=== PATIENT | male | born 1935 | race Two or more races ===

== ENCOUNTER 2021-05-27 09:30 | Outpatient (REF) | payer MEDICARE, SELFPAY ==
--- NOTE | 2021-05-27 09:38 | EMG_ITS ---
Bilateral tibial and peroneal motor studies were performed. Bilateral superficial peroneal and sural sensory studies were performed. Tibial H-reflexes were obtained and paraspinal muscles were tested with a needle. 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 MD GAYATHRI Rojo/NATACHA / [id number]
== END 2021-05-27 09:31 | disposition home or self-care (01) ==
LOC: HO.NEURO 09:30
PROVIDERS: PCP Internal Medicine; Visit Provider Internal Medicine
DX: R29.898 Other symptoms and signs involving the musculoskeletal system (principal)
CPT/HCPCS: 95886; 95911

== ENCOUNTER 2021-08-23 10:00 | Outpatient (RCR) | payer MEDICARE, SELFPAY ==
[2021-08-17 10:10] VITALS: BP 152/67; PULSE 61; O2SAT 92
== END 2021-09-08 10:51 | disposition home or self-care (01) ==
LOC: HO.PT 10:00
PROVIDERS: PCP Internal Medicine; Visit Provider Internal Medicine
DX: G62.9 Polyneuropathy, unspecified (principal)
CPT/HCPCS: 97110; 97162

== ENCOUNTER 2021-12-07 16:16 | Outpatient (REF) | payer MEDICARE, SELFPAY ==
--- NOTE | ~2021-12-07 | XR_ITS ---
EXAMINATION: XR CHEST CLINICAL INFORMATION: COPD. Localized edema. COMPARISON: February 03, 2020 TECHNIQUE: 2 views of the chest were obtained. FINDINGS: There is no evidence of acute parenchymal disease, pneumothorax, or pleural effusion. Heart normal size. No evidence of pulmonary edema. Calcified granulomas present. XR/XR chest 2V IMPRESSION: No acute disease. Old granulomatous disease.
== END 2021-12-07 16:17 | disposition home or self-care (01) ==
LOC: HO.XRAY 16:16
PROVIDERS: Absent Provider Internal Medicine; PCP Internal Medicine; Visit Provider General Practice
DX: J44.9 Chronic obstructive pulmonary disease, unspecified (principal); R60.0 Localized edema
CPT/HCPCS: 71046

== ENCOUNTER 2022-03-04 09:50 | Outpatient (REF) | payer MEDICARE, SELFPAY ==
--- NOTE | 2022-03-04 | PFT_ITS ---
FLOWS: FEV1 40% of predicted at 1.00 L. FVC 74% of predicted at 2.44 L. FEV1 to FVC ratio of 0.41. Positive bronchodilator response. LUNG VOLUMES: Total lung capacity 95% of predicted at 6.19 L. Residual volume 168% of predicted at 4.41 L. Slow vital capacity 46% of predicted at 1.78 L. Expiratory reserve volume 53% of predicted at 0.48 L. Diffusion capacity is moderately decreased, diffusion capacity adjust to being mildly decreased after correction for alveolar ventilation. IMPRESSION: Severe to very severe obstructive ventilatory defect with positive bronchodilator response. Increased residual volume suggests air trapping. Decreased diffusion capacity suggests emphysema. Luis Lopez MD AP/MODL / [id number]
== END 2022-03-04 09:51 | disposition home or self-care (01) ==
LOC: HO.RESP 09:50
PROVIDERS: PCP Internal Medicine; Visit Provider Internal Medicine
DX: J44.9 Chronic obstructive pulmonary disease, unspecified (principal)
CPT/HCPCS: 94060; 94727; 94729

== ENCOUNTER → 2022-05-06 09:42 | Outpatient (REF) | payer MEDICARE, SELFPAY ==
--- NOTE | 2022-05-06 09:45 | CA_ITS ---
Transthoracic Echocardiogram Patient (Last, First, Middle): Joshua Montenegro, Gender: Male Date of : 1935 Age: 87 Procedure Date: 05/06/2022 Procedure Type: Transthoracic Echocardiogram Location: OP Height: 167.64 cm Weight: kg BSA: m2 Heart Rate: 69 bpm Private Pilot: MELISSA Referring MD: Minal العراقي MD Symptoms: I10 HTN R06.02 SOB Study Quality: Fair/Parasternal Adequate/Apical ECG Rhythm: Sinus Conclusions: - Normal left ventricular size, thickness, and systolic function. The visually estimated ejection fraction is between 55-60%. - E/E prime ratio is between 8 and 15 consistent with indeterminate filling pressures. - Normal right ventricular cavity size and systolic function. Findings Left Ventricle Normal left ventricular size, thickness, and systolic function. The visually estimated ejection fraction is between 55-60%. There is no evidence of regional wall motion abnormalities. Abnormal diastolic function is noted. Spectral Doppler is indicative of an impaired relaxation filling pattern. E/E prime ratio is between 8 and 15 consistent with indeterminate filling pressures. Right Ventricle Normal right ventricular cavity size and systolic function. Atria Both atria are normal in size. Aortic Valve The aortic valve was not well visualized. There is no aortic valve stenosis. There is no aortic valve regurgitation. Mitral Valve Normal mitral valve structure and function. There is trace mitral valve regurgitation. There is no mitral valve stenosis. Pulmonic Valve The pulmonic valve is likely normal. Tricuspid Valve Normal tricuspid valve structure and function. There is trace tricuspid valve regurgitation. Normal right atrial pressure. There is no evidence of pulmonary hypertension. Great Vessels All visible segments of the aorta are normal in size. The pulmonary artery was not well visualized. Venous The inferior vena cava is normal in size and collapses greater than 50% with inspiration. Pericardium/Pleural There is no evidence of pericardial effusion. Prior Study Comparison No prior study available for comparison. Measurements 2D Linear Measurements IVSd: 0.89 0.6-0.9/0.6-1.0 cm LVIDd: 4.65 3.9-5.3/4.2-5.9 cm LVIDs: 3.36 2.0-3.6 cm LVPWd: 0.59 0.7-1.1 cm LA Diam: 3.30 2.7-3.8/3.0-4.0 cm LV Mass: 135.35 67-162/88-224 g LVOT Diam: 2.10 3.0+(-)1.3 cm 2D Systolic Function EF 4C: 60.90 >55% EF 2C: 53.60 >55% EF BiP: 57.70 >55% Mitral Valve MV Pk E: 0.62 MV PK A: 0.83 MV Decel Time: 186.00 E/A: 0.80 E'Lateral: 7.94 E'Medial: 5.77 E/E' Med: 10.80 E/E' Lat: 7.80 PHT: 55.00 MVA PHT: 4.00 Decel [place]: 3.34 Aortic Valve AoV Pk Shahid: 1.27 AoV Mn Shahid: 0.90 AoV VTI: 0.25 AoV Pk Grad: 6.00 Aov Mn Grad: 4.00 RG Cont.VTI: 2.83 LVOT LVOT Pk Shahid: 1.03 LVOT Mn Shahid: 0.69 LVOT VTI: 0.21 LVOT Pk Grad: 4.00 LVOT Mn Grad: 2.00 LVOT Diam: 2.10 LVOT Area: 3.46 Diastolic Function MV Pk E: 0.62 MV Pk A: 0.83 E/A: 0.80 E'Medial: 5.77 E/E' Med: 10.80 E' Laterial: 7.94 E/E' Lat: 7.80 Right Ventricle TAPSE (mm): 15.70 TVS' Shahid: 12.10 Tricuspid Valve TR Pk Shahid: 2.08 TR Pk Grad: 17.00 RA Press: 3.00 RVSP: 20.00 Great Vessels Aorta Sinus of Valsalva: 3.30 2.0-3.5 cm Ao Asc: 3.20 2.1-3.4 cm Pulmonary Veins Pulm Vein S/D 1.60 Updated in Other Vendor System with Status of Final Wu Bauman MD electronically signed on 05/07/2022 10:36:34 PM with status of Final
== END ==
LOC: HO.CARD 09:42
PROVIDERS: Visit Provider Internal Medicine
DX: I10 Essential (primary) hypertension (principal); R06.02 Shortness of breath
CPT/HCPCS: 93306

== ENCOUNTER 2022-11-11 13:24 | Outpatient (REF) | payer MEDICARE, SELFPAY ==
--- NOTE | ~2022-11-11 | XR_ITS ---
EXAMINATION: XR CHEST CLINICAL INFORMATION: COPD with acute exacerbation. COMPARISON: 12/07/2021 chest radiograph. TECHNIQUE: 2 views of the chest were obtained. FINDINGS: Patchy opacities are seen in the right midlung. Right lung base lateral calcified granuloma without interval change. The left lung is clear. The heart and mediastinal structures are unremarkable. XR/XR chest 2V IMPRESSION: Right midlung infiltrates.
== END 2022-11-11 13:25 | disposition home or self-care (01) ==
LOC: HO.XRAY 13:24
PROVIDERS: Visit Provider Internal Medicine
DX: J44.1 Chronic obstructive pulmonary disease with (acute) exacerbation (principal)
CPT/HCPCS: 71046

== ENCOUNTER 2023-03-15 11:59 | Outpatient (REF) | payer MEDICARE, SELFPAY ==
--- NOTE | ~2023-03-15 | XR_ITS ---
EXAMINATION: XR SHOULDER, LEFT CLINICAL INFORMATION: Pain status-post fall 3 weeks prior. COMPARISON: None available. TECHNIQUE: AP external rotation, Grashey, scapular Y, and axillary views of the left shoulder. FINDINGS: There is mild bony demineralization. The glenohumeral joint is intact. The acromioclavicular and coracoclavicular intervals are normal. No fracture or dislocation is seen. There is no abnormal soft tissue calcification or foreign body. No left pneumothorax is seen. XR/XR shoulder LT min 2V IMPRESSION: Unremarkable left shoulder.
== END 2023-03-15 12:00 | disposition home or self-care (01) ==
LOC: HO.HHCX 11:59
PROVIDERS: Visit Provider Internal Medicine
DX: M25.512 Pain in left shoulder (principal)
CPT/HCPCS: 73030

== ENCOUNTER 2024-03-08 11:43 | Outpatient (REF) | payer OTHER, SELFPAY ==
--- NOTE | ~2024-03-08 | CT_ITS ---
EXAMINATION: CT HEAD WITHOUT CONTRAST CLINICAL INFORMATION: Change in mental status, memory impairment. History of subarachnoid hemorrhage. COMPARISON: None available. TECHNIQUE: Contiguous axial imaging was performed from the skull base to vertex without intravenous administration of contrast. This CT examination was performed using dose optimization techniques as appropriate, variously including the following: *Automated exposure control *Adjustment of mA and/or kV according to patient size (this includes techniques or standardized protocols for targeted exams where dose is matched to indication/reason for exam; i.e. extremities or head) *Use of iterative reconstruction technique DLP: 722 mGy-cm FINDINGS: Moderate diffuse commensurate prominence of ventricles and sulci is noted. Focal cortical and subcortical encephalomalacia over an approximate 2.5 cm diameter region is centered in the anterior right middle frontal lobe gyrus. Elsewhere, mild scattered subcortical and periventricular white matter patchy hypodensities are visualized. A right frontoparietal extra-axial fluid collection is subdural configuration measures 3 mm in width is comprised of intermediate low density attenuation. A left frontoparietal extra-axial fluid collection in the subdural configuration measures 3 mm in width is comprised of intermediate low density fluid. Both findings are suspicious for subacute or chronic subdural hematomas. No acute intracranial hemorrhage visualized. The left frontal cranial aram hole is noted. No mastoid or middle ear cavity effusions identified. Bilateral external auditory canal density likely representing cerumen is noted. The maxillary sinuses are partially included in the image [id number] and mild-moderate concentric mucosal thickening and minimal retained secretions are noted in the visualized left maxillary sinus. Bilateral presumed clot: Mild drainage devices are noted along the medial scleral margins of the globes bilaterally. Bilateral ocular lens replacements are noted. CT/CT head/brain wo IV con IMPRESSION: *No acute intercranial abnormalities identified. 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 No associated lobar herniation. *Chronic encephalomalacia centered in the anterior right middle frontal lobe gyrus likely related to remote ischemic injury. *Moderate diffuse parenchymal volume loss the brain and mild chronic microangiopathic ischemic changes. This result regarding findings suspicious for subacute or chronic subdural hematomas was discussed with Minal العراقي MD by telephone at 03/13/2024 3:42 PM and it was ascertained that the content and urgency of the report was understood at the time of direct communication.
== END 2024-03-08 11:44 | disposition home or self-care (01) ==
LOC: HO.CT 11:43
PROVIDERS: PCP Internal Medicine; Visit Provider Internal Medicine
DX: R41.0 Disorientation, unspecified (principal)
CPT/HCPCS: 70450

== ENCOUNTER 2024-04-03 10:15 | Outpatient (REF) | payer OTHER, SELFPAY ==
[2024-04-03 11:48] LABS: MANUAL DIFF FLAG NO
[2024-04-03 11:56] LABS: Basophils Absolute Auto 0.1 X10*3/uL (0.0-0.2); Basophils Percent Auto 0.7 % (0-2); Eosinophils Absolute Auto 0.7 X10*3/uL (0.0-0.4); Eosinophils Percent Auto 10.4 % (0-4); Hematocrit 41.7 % (42.0-52.0); Hemoglobin 13.3 g/dl (14.0-18.0); Imm Gran Abs Auto 0.05 X10*3/uL (0.00-0.03); Imm Gran Pct Auto 0.7 % (0.0-0.4); Lymphocytes Absolute Auto 1.3 X10*3/uL (1.2-4.9); Lymphocytes Percent Auto 18.6 % (20-40); Mean Corpuscular HGB Conc 31.9 g/dl (31.0-36.0); Mean Corpuscular Hemoglobin 30.4 pg (27.0-33.0); Mean Corpuscular Volume 95.2 fL (80.0-98.0); Mean Platelet Volume 10.2 fL (9.4-12.4); Monocytes Absolute Auto 0.7 X10*3/uL (0.1-1.2); Monocytes Percent Auto 9.2 % (2-11); Neutrophils Absolute Auto 4.2 x10*3/uL (2.0-8.3); Neutrophils Percent Auto 60.4 % (45-73); Platelet Count 258 X10*3/uL (160-400); Red Blood Count 4.38 X10*6/uL (4.60-5.80); Red Cell Distribution Width 12.9 % (11.0-16.0)
[2024-04-03 12:04] LABS: Estimated Average Glucose 137 mg/dL; Hemoglobin A1c % 6.4 % (<6.0)
[2024-04-03 12:22] LABS: Alanine Aminotransferase 28 U/L (0-40); Albumin Level 4.2 g/dL (3.5-5.0); Alkaline Phosphatase 144 U/L (39-117); Anion Gap 14 (12-20); Aspartate Amino Transferase 25 U/L (5-37); Bilirubin Total 0.2 mg/dL (0.0-1.0); Blood Urea Nitrogen 24 mg/dL (9-16); Carbon Dioxide 28 mmol/L (22-29); Chloride 110 mmol/L (96-108); Cholesterol 194 mg/dL (<200); Estimated Glomerular Filt Rate 45; Glucose Random 115 mg/dL (60-115); HDL Cholesterol 40 mg/dL (>40); LDL Cholesterol Calculated 83 mg/dL (<100); Potassium 6.1 mmol/L (3.3-5.1); Sodium 146 mmol/L (135-145); Triglycerides 355 mg/dL (<150)
[2024-04-03 12:37] LABS: TSH reflex Free T4 1.82 uIU/mL (0.32-4.0)
[2024-04-03 12:43] LABS: Creatinine Urine 154.34 mg/dL; Microalbum/Creatinine Ratio Ur 26.5 ug/mg cr (<30)
[2024-04-03 13:04] LABS: HIV AB/AG Nonreactive (Nonreactive); HIV Num 1 0.05 S/CO (0.00-0.99)
[2024-04-04 12:29] LABS: RPR Rapid Plasma Reagin NON-REACTIVE (NON-REACTIVE)
[2024-04-05 14:28] LABS: HCV Log PCR <1.18 NOT DETECTED Log IU/mL (NOT DETECTED); HepC Viral Load <15 NOT DETECTED IU/mL (NOT DETECTED)
[2024-04-06 17:43] LABS: TS Negative Control Passed; TS Panel A 2; TS Panel B 0; TS Positive Control Passed; TSpotTB Negative (Negative)
== END 2024-04-03 10:16 | disposition home or self-care (01) ==
LOC: HO.HHCL 10:15
PROVIDERS: Visit Provider Registered Nurse
DX: Z00.00 Encounter for general adult medical examination without abnormal findings (principal); Z20.2 Contact with and (suspected) exposure to infections with a predominantly sexual mode of transmission
CPT/HCPCS: 36415; 80053; 80061; 82043; 82570; 83036; 84443; 85025; 86481; 86592; 87389; 87522

== ENCOUNTER 2024-04-15 11:43 | Outpatient (REF) | payer OTHER, SELFPAY ==
[2024-04-15 14:15] LABS: Anion Gap 14 (12-20); Blood Urea Nitrogen 21 mg/dL (9-16); Calcium 9.4 mg/dL (8.4-10.2); Carbon Dioxide 31 mmol/L (22-29); Chloride 106 mmol/L (96-108); Estimated Glomerular Filt Rate 47; Glucose Random 147 mg/dL (60-115); Potassium 5.4 mmol/L (3.3-5.1); Sodium 146 mmol/L (135-145)
== END 2024-04-15 11:44 | disposition home or self-care (01) ==
LOC: HO.HHCL 11:43
PROVIDERS: Visit Provider Registered Nurse
DX: E87.5 Hyperkalemia (principal)
CPT/HCPCS: 36415; 80048

== ENCOUNTER 2024-04-19 12:45 | Outpatient (REF) | payer OTHER, SELFPAY ==
[2024-04-19 16:44] LABS: Anion Gap 14 (12-20); Blood Urea Nitrogen 28 mg/dL (9-16); Calcium 9.1 mg/dL (8.4-10.2); Carbon Dioxide 29 mmol/L (22-29); Chloride 105 mmol/L (96-108); Estimated Glomerular Filt Rate 38; Glucose Random 160 mg/dL (60-115); Potassium 5.6 mmol/L (3.3-5.1); Sodium 142 mmol/L (135-145)
== END 2024-04-19 12:46 | disposition home or self-care (01) ==
LOC: HO.HHCL 12:45
PROVIDERS: Visit Provider Internal Medicine
DX: R41.0 Disorientation, unspecified (principal); E87.5 Hyperkalemia
CPT/HCPCS: 36415; 80048

== ENCOUNTER 2024-05-13 11:44 | Outpatient (REF) | payer OTHER, SELFPAY ==
[2024-05-13 13:53] LABS: Anion Gap 16 (12-20); Blood Urea Nitrogen 18 mg/dL (9-16); Calcium 8.6 mg/dL (8.4-10.2); Carbon Dioxide 26 mmol/L (22-29); Chloride 105 mmol/L (96-108); Estimated Glomerular Filt Rate 53; Glucose Random 115 mg/dL (60-115); Potassium 5.5 mmol/L (3.3-5.1); Sodium 141 mmol/L (135-145)
== END 2024-05-13 11:45 | disposition home or self-care (01) ==
LOC: HO.HHCL 11:44
PROVIDERS: Visit Provider Internal Medicine
DX: E87.5 Hyperkalemia (principal); J44.1 Chronic obstructive pulmonary disease with (acute) exacerbation; Z91.89 Other specified personal risk factors, not elsewhere classified
CPT/HCPCS: 36415; 80048

== ENCOUNTER 2024-05-17 11:10 | Outpatient (REF) | payer OTHER, SELFPAY ==
[2024-05-17 21:04] LABS: Anion Gap 15 (12-20); Blood Urea Nitrogen 20 mg/dL (9-16); Calcium 9.1 mg/dL (8.4-10.2); Carbon Dioxide 27 mmol/L (22-29); Chloride 104 mmol/L (96-108); Estimated Glomerular Filt Rate 59; Glucose Random 170 mg/dL (60-115); Potassium 4.3 mmol/L (3.3-5.1); Sodium 142 mmol/L (135-145)
== END 2024-05-17 11:11 | disposition home or self-care (01) ==
LOC: HO.HHCL 11:10
PROVIDERS: Visit Provider Internal Medicine
DX: E87.5 Hyperkalemia (principal)
CPT/HCPCS: 36415; 80048

== ENCOUNTER 2024-11-19 12:10 | Outpatient (REF) | payer OTHER, SELFPAY ==
[2024-11-19 13:54] LABS: Anion Gap 13 (12-20); Blood Urea Nitrogen 19 mg/dL (9-16); Calcium 9.1 mg/dL (8.4-10.2); Carbon Dioxide 25 mmol/L (22-29); Chloride 108 mmol/L (96-108); Estimated Glomerular Filt Rate > 60; Glucose Random 123 mg/dL (60-115); Potassium 5.1 mmol/L (3.3-5.1); Sodium 141 mmol/L (135-145)
== END 2024-11-19 12:11 | disposition home or self-care (01) ==
LOC: HO.HHCL 12:10
PROVIDERS: Visit Provider Internal Medicine
DX: E11.9 Type 2 diabetes mellitus without complications (principal)
CPT/HCPCS: 36415; 80048

== ENCOUNTER 2025-01-02 12:51 | Outpatient (REF) | payer OTHER, SELFPAY ==
--- NOTE | ~2025-01-02 | XR_ITS ---
EXAMINATION: XR CHEST CLINICAL INFORMATION: altered mental status /COPD COMPARISON: Chest x-ray 11/11/2022 and 02/03/2020 TECHNIQUE: 2 views of the chest were obtained. FINDINGS: The lungs are hyperinflated but clear acute process. There is 9 mm nodule right lung base seen on PA projection only. Heart size and poor vascularity is normal. Moderate spondylosis seen throughout dorsal spine. No lytic process. XR/XR chest 2V IMPRESSION: Hyperinflated lungs likely emphysema. Calcified nodule right lung base likely granuloma. It is stable since 02/03/2020 Electronically signed by: Fab Torres MD 01/02/2025 02:11 PM [facility]
[2025-01-02 16:23] LABS: MANUAL DIFF FLAG NO
[2025-01-02 16:43] LABS: Basophils Absolute Auto 0.1 X10*3/uL (0.0-0.2); Basophils Percent Auto 0.7 % (0-2); Eosinophils Absolute Auto 1.1 X10*3/uL (0.0-0.4); Eosinophils Percent Auto 12.2 % (0-4); Hematocrit 39.7 % (42.0-52.0); Hemoglobin 12.6 g/dl (14.0-18.0); Imm Gran Abs Auto 0.05 X10*3/uL (0.00-0.03); Imm Gran Pct Auto 0.5 % (0.0-0.4); Lymphocytes Absolute Auto 0.9 X10*3/uL (1.2-4.9); Lymphocytes Percent Auto 9.8 % (20-40); Mean Corpuscular HGB Conc 31.7 g/dl (31.0-36.0); Mean Corpuscular Hemoglobin 29.9 pg (27.0-33.0); Mean Corpuscular Volume 94.1 fL (80.0-98.0); Mean Platelet Volume 10.5 fL (9.4-12.4); Monocytes Absolute Auto 0.6 X10*3/uL (0.1-1.2); Neutrophils Absolute Auto 6.4 x10*3/uL (2.0-8.3); Neutrophils Percent Auto 69.8 % (45-73); Platelet Count 238 X10*3/uL (160-400); Red Blood Count 4.22 X10*6/uL (4.60-5.80); Red Cell Distribution Width 12.6 % (11.0-16.0); White Blood Count 9.1 X10*3/uL (4.8-10.8)
[2025-01-02 17:06] LABS: Alanine Aminotransferase 12 U/L (0-40); Albumin Level 3.9 g/dL (3.5-5.0); Alkaline Phosphatase 105 U/L (39-117); Anion Gap 14 (12-20); Aspartate Amino Transferase 16 U/L (5-37); Bilirubin Total 0.3 mg/dL (0.0-1.0); Blood Urea Nitrogen 24 mg/dL (9-16); Calcium 8.9 mg/dL (8.4-10.2); Carbon Dioxide 27 mmol/L (22-29); Chloride 108 mmol/L (96-108); Estimated Glomerular Filt Rate 48; Glucose Random 154 mg/dL (60-115); Potassium 5.1 mmol/L (3.3-5.1); Sodium 144 mmol/L (135-145); Total Protein 6.7 g/dL (6.5-8.0)
[2025-01-02 17:22] LABS: TSH reflex Free T4 0.63 uIU/mL (0.32-4.0)
[2025-01-02 17:29] LABS: Folate 3.6 ng/mL (> or = 4.0); Vitamin B12 450 pg/mL (200-900)
[2025-01-02 17:34] LABS: Carbamazepine Tegretol 4.9 mcg/mL (5.0-12.0)
== END 2025-01-02 12:52 | disposition home or self-care (01) ==
LOC: HO.HHCL 12:51
PROVIDERS: Visit Provider Internal Medicine
DX: R41.82 Altered mental status, unspecified (principal); G40.909 Epilepsy, unspecified, not intractable, without status epilepticus; F09 Unspecified mental disorder due to known physiological condition; J43.9 Emphysema, unspecified; F01.B11 Vascular dementia, moderate, with agitation
CPT/HCPCS: 36415; 71046; 80053; 80156; 82607; 82746; 84443; 85025

== ENCOUNTER → 2025-01-02 13:03 | Outpatient (BNV) | payer OTHER, SELFPAY | PROVIDERS: Visit Provider Radiology Diagnostic Radiology | DX: R41.82 Altered mental status, unspecified (principal) | CPT/HCPCS: 71046 ==

== ENCOUNTER 2025-01-06 14:17 | Outpatient (REF) | payer OTHER, SELFPAY ==
[2025-01-06 16:04] LABS: Appearance Urine Turbid; Color Urine Yellow; Glucose Urine UA Negative (Negative); Leukocyte Esterase Urine Large (3+) (Negative); Nitrite Urine Negative (Negative); PH 6.5 (5.0-9.0); UMIC TRIGGER UACC YES; Urine Blood Large (3+) (Negative); Urine Ketones Negative (Negative); Urine Protein 300 (3+) mg/dL (Neg-Trace)
[2025-01-06 16:08] LABS: Bacteria Urine 4+ (None Seen); RBC Urine >20 /HPF (0-2); UACC Culture Trigger YES; WBC Urine >50 /HPF (0-5)
--- OUTSIDE RECORDS SUMMARY | 2025-01-06 16:21 | XMS_ITS | Encounter Summary ---
Author Organization [employer] Address [address] [place] [address] Care Team Providers Care Core Rescuer Name Role Phone Minal العراقي MD Primary Care Provider + Encounter Details Date Type Department Care Team (Late st Contact Info) Description 01/03/2025 Orders Only [facility] [address], [place] [phone] Minal العراقي MD [address] [place], [place] [phone] Social History Tobacco Use Types Packs/Day Years Used Date Smoking Tobacco: Former Smokeless Tobacco: Never Alcohol Use Standard Drinks/Week Comments Never 0 (1 standard drink = 0.6 oz pur e alcohol) Depression Answer Date Recorded Patient Health Questionnaire-9 Score 4 04/03/2024 Patient Health Questionnaire-9 Score 4 04/03/2024 Last PHQ-9: Questionnaire Data Not on file 0 04/03/2024 Housing Stability Answer Date Recorded What is your housing situation today? I have viji benjamin 01/05/[address] you li ve. Do you have problems with any of the following? None of the above 01/05/2024 Food Insecurity Answer Date Recorded Within the past 12 months, y ou worried that your food would run out before you got money to buy more: Never True 01/05/2024 Within the past 12 months,th e food you bought just didn't last and you didn't have enough money to get more: Never True 05/2024 Transportation Answer Date Recorded In the past 12 months, has l ack of transportation kept you from medical appts, meetings, work or from getting things needed for daily living? No 01/05/2024 Utilities Answer Date Recorded In the past 12 months, has t he electric, gas, oil or water company threatened to shut off services in your home? No 01/05/2024 Depression Answer Date Recorded Patient Health Questionnaire-2 Score 2 04/03/2024 Sex and Gender Information Value Date Recorded Sex Assigned at Male 08/29/2022 10:29 AM EDT Legal Sex Male 10:29 AM EDT Gender Identity Male 08/29/2022 10:29 AM EDT Sexual Orientation Straight 08/29/2022 10 :29 AM EDT documented as of this encounter Plan of Treatment Not on file documented as of this encounter Visit Diagnoses Not on filedocumented in this encounter Additional Health Concerns Assessment Noted Time PHQ-9 Depression Total Score: 4 04/03/20 24 9:22 AM EDT documented as of this encounter Care Teams Core Rescuer Relationship Specialty Start Date End Date Minal العراقي MD [address] [place] [id number] PCP - General Family Medicine 10/06/16 [facility] 12/26/24 documented as of this encounter
--- OUTSIDE RECORDS SUMMARY | 2025-01-06 16:21 | XMS_ITS | Encounter Summary ---
Author Organization [employer] Address [address] [facility] [address] [place] [address] Care Team Providers Care Window Draper Name Role Phone Jessica العراقي MD Primary Care Provider + Reason for Visit * Reason Onset Date Comments Care Coordination 01/01/2025 Encounter Details Date Type Department Care Team ([facility] st Contact Info) Description 01/01/2025 Telephone [facility] MEDICINE [address] [place] [address] Jessica العراقي MD [address] [place], [place] [phone] Care Coordination Social History Tobacco Use Types Packs/Day Years [...] AM EDT documented as of this encounter Miscellaneous Notes * Telephone Encounter - Yolie Martines RN - 01/03/2025 1:52 PM EST Noted. * Addendum Note - Jessica العراقي MD - 01/03/2025 1:45 PM ESTAddended by: JESSICA العراقي on: 01/03/2025 01:45 PM Modules accepted: Orders * Telephone Encounter - Jessica العراقي MD - 01/03/2025 1:37 PM EST RN note reviewed, I called Anne Marie (second dose daughter) and discussed with her CXR findings, I toldher that there was no acute changes, only chronic COPD. She tells me that he is already taking carbamazepine 100 mg twice daily along with other medications. I advised to increase gabapentin to 300 mg twice daily instead and I will follow-up with them next week. I ordered UA and culture to be done by VNA or patient next week and bring it to the lab. I discussed with Anne Marie regarding progression of vascular dementia, she is aware that she needs to bring him to the ED if there is any acute exacerbation of any of his conditions. VNA will fu and give b12 monthly as well. * Result Encounter Note - Jessica العراقي MD - 01/03/2025 8:56 AM EST Labs on 01/02/2025 showed low folic acid and hyperglycemia, otherwise TSH, CBC and the rest of the CMP were fairly normal, not explaining mental status changes. His carbamazepine levels are a bit low as well. Please call patient and tell them to increase carbamazepine to 1 tablet twice daily that will also help with behavioral changes. And, start folic acid and have VNA check blood sugar at home for the next 2 weeks, mostly randomly. Please neurology office (I believe Dr. Valenzuela, please check withthe daughter) and tell them that I increase the carbamazepine to 100 mg twice daily mostly due to behavioral issues, thousand the patient has not had any seizures. * Telephone Encounter - Yolie Martines RN - 01/02/2025 11:01 AM EST TC placed to Zuly [phone] in regards to below message. Zuly reports she was able to see the patient yesterday. Zuly reports the patient was clean (he did smell of urine however he had just used the restroom) and the house is also very clean and organized. VNA reports the patient refuses to use incontinence supplies (daughter has tried multiple kinds/styles however patient takes them off and throws them out). Daughter reported the patient only will use incontinence supplies when admittedto the hospital. VNA reports the patient was able to answer a few simple questions. VNA reports thepatients O2 was 91-92% and after 3 minutes of ambulating it was 91-92% as well. Daughter reported to the [facility] his O2 fluctuates normally between 87-92%. Daughter reported the patient is asymptomatic with O2 being 87-92% and does not have any breathing difficulties. VNA reports the patient went to [facility] 2x/week d/t refusing to go however daughter would like for patient to go to decrease caregiver burden. VNA reports the daughter is very conflicted on what to do with her father. Daughter has several health challenges of her own and is feeling overwhelmed. VNA reports daughter is struggling to take care of her father at this time, she did state there are 7 siblings however none are involved in fathers care. Daughter is aware she can bring the patient to the ED for admission to a SNF however she is worried as she does not want him to end up in a facility such as [place] and she is aware the ED will place patient in the SNF with the first bed available. Daughter wants the best SNF available for her father. Daughter will bring the patient to [facility] today to complete BW and CXR. Sending to PCP as FYI. * Telephone Encounter - Yolie Martines RN - 01/01/2025 4:10 PM EST TC placed to Zuly [phone] who reports she was able to make contact with the daughter and is on her way to the house now to complete the safety eval. RN requested VNA complete a O2 after 3 minutes walking on RA. VNA reports the daughter does NOT plan to bring the patient to the ED tonight and informed VNA she will come to [facility] tomorrow to complete BW and Xray. VNA informed RN will return callto VNA tomorrow to obtain O2 level. VNA verbalized understanding. VNA to f/u PRN. * Addendum Note - Jessica العراقي MD - 01/01/2025 3:51 PM ESTAddended by: JESSICA العراقي on: 01/01/2025 03:51 PM Modules accepted: Orders * Telephone Encounter - Jessica العراقي MD - 01/01/2025 3:44 PM EST I spoke with daughter Anne Marie who reports that patient is becoming increasingly agitated over the past few weeks especially at night, and is battling at bedtime at bedtime medications and oxygen use although eventually he agrees to use it. Anne Marie feels overwhelmed by the on hands care required by Joshua due to worsening condition. She tells me she has not noticed any worsening cough shortness of breath, fever, difficulty urinating, diarrhea, sore throat and that he is otherwise taking his medications especially the ones in the morning. She tells me that she has been sending him with oxygen to the daycare this week due to request fromthe [facility] management as patient was using O2 for a while right after a hospitalization last year. It is unclear what O2 order do they have. Overall patient apparently is not using O2 at home during the daytime and is doing well. AP/VNA will do home safety evaluation as detailed below. Will consider placement due to probably worsening dementia with behavioral issues, Anne Marie agrees with the POC. I will order labs to rule out delirium/acute condition/UTI/URI/B12 DEF/etc. patient will have them done tomorrow right after VNA evaluation. No need for oxygen during the daytime, he will continue O2 overnight only for now. VNA to monitor O2 on 3-minute ambulation test * Telephone Encounter - Yolie Martines RN - 01/01/2025 3:20 PM EST RN called daughter [phone] and was able to transfer the call to PCP. RN also spoke to Rose (S liaison) to inquire on patients VNA name and number. RN was informedRozinaNORM is Zuly and her number is [phone]. Rose reports Zuly also reports the patient was supposed to be seen yesterday however the daughter requested visit to be instead as the patient was tired. Zuly is scheduled to see patient tomorrow. TC placed to Zuly [phone] to request a home safety eval during the visit tomorrow. Zuly reports she called the patients daughter today to see if she can perform the safety eval today. Zuly reports the daughter did not answer however she will re-attempt after this conversation to call the daughter again. RN will call VNA back in 30mins to confirm if she will be able to see the patient today. * Telephone Encounter - Jessica العراقي MD - 01/01/2025 2:54 PM EST RN notifications below reviewed, will continue to contact daughter regarding patient's use of oxygen and current conditions as described below. If unable to contact daughter, please ask VNA services to do a home safety evaluation and provide number of a additional caretakers to touch base with in regards of the patient. * Telephone Encounter - Yolie Martines RN - 01/01/2025 2:33 PM EST PCP reviewed below message. Patient is NOT supposed to be on O2 during the day. RN called Leela [phone] to inform Leela the patient is not supposed to be on O2 during the day. [facility] RN and PCP are attempting to make contact with the daughter regarding patients care. RN was provided with alternative phone number of [phone]. RN attempted to call alternative number however no answer, RN left VM requesting CB to red team nurses. PCP notified. * Telephone Encounter - Yolie Martines RN - 01/01/2025 1:56 PM EST TC returned to Leela [phone] who reports the patient returned to [facility] today with O2. [facility] reports they need an order for patient to be on O2 during the daytime. Leela informed per OV note on 12/20/24, patient was to continue with overnight O2 and f/u with [facility]. It is unclear who instructed patient to use day time O2. RN advised JOE Swenson would call [facility] pul[facility] to inquire if patient was advised to use daytime O2 as there is no documentation of this in [facility] and return call to [facility]. Leela is also concerned for the patients wellbeing. Leela reports the patient smelled of urine and stool today and the patient was not wet. Leela reports the patient did not seem as if he has had a shower recently. Leela reports the patient is regressing rapidly and she is concerned the daughter is unable to care for him. Leela reports the patient used to play dominoes all the time however he does notrecall how to play and spends the day wandering . TC placed to [facility] pulmon[facility] [phone] to inquire if they advised the patient/daughter to use [id number] the daytime and if so how many L in order to provide orders to day program. [employer] reports they do not see any clinical notes regarding daytime O2 however they will send a message to [employer] to confirm and they will return call to [facility]. RN will await CB. TC placed to daughter [phone] to inquire on daytime O2 and to inquire if she was advised by a provider to place patient on daytime O2. Daughter did not answer, RN left requesting CB to red team nurses. RN will send to PCP for review * Telephone Encounter - Araceli Garnett - 01/01/2025 1:18 PM EST Tc from Leela at [facility] stating pt was out sick and returned with oxygen. Leela is requesting an orderfor oxygen. Leela also wanted to inform provider pt is regressing Contact Leela or available nurse (if Leela not available) at [phone] documented in this encounter Plan of Treatment Scheduled Orders Name Type Priority Associated Diagnoses Orde r Schedule Carbamazepine, Free Lab Routine Seizure disorder (CMS/HCC) Cognitive disorder Expected: 01/01/2025 (Approximate), Expires: 01/01/2026 documented as of this encounter Procedures Procedure Name Priority Date/Time Associated Diagnosis Comments URINALYSIS, COMPLETE, WITH REFLEX TO CULTURE Routine 01/06/2025 2:21 PM EDT Altered mental status, unspecified altered mental status type XR CHEST 2 VIEWS Routine 01/02/2025 1:03 PM EST Altered mental status, unspecified altered mental status type Pulmonary emphysema, unspecified emphysema type (CMS/HCC) VITAMIN B12/FOLATE, SERUM PANEL Routine 01/02/2025 12:54 PM EST Moderate vascular dementia with agitation (CMS/HCC) TSH W/REFLEX TO FT4 Routine 01/02/2025 1 2:54 PM EST Altered mental status, unspecified altered mental status type CBC WITH AUTO DIFFERENTIAL Routine 01/02/2025 12:54 PM EST Altered mental status, unspecified altered mental status type Pulmonary emphysema, unspecified emphysema type (CMS/HCC) CARBAMAZEPINE, TOTAL Routine 01/02/2025 12:54 PM EST Seizure disorder ([facility]) Cognitive disorder COMPREHENSIVE METABOLIC PANEL Routine 01/02/2025 12:54 PM EST Altered mental status, unspecified altered mental status type Moderate vascular dementia with agitation ([facility]/HCC) documented in this encounter Results * (ABNORMAL) Urinalysis, Complete, with Reflex to Culture (01/06/2025 2:21 PM EDT) Color Urine Yellow [facility] Appearance Urine Turbid [facility] PH 6.5 5.0 - 9.0 [facility] Glucose Urine UA Negative Negative mg/dL [facility] Urine Blood Large (3+)(A) Negative [facility] Specific [place] - Urine 1.020 1.005 - 1.025 [facility] Urine Protein 300 (3+)(A) Neg-Trace mg/dL [facility] Urine Ketones Negative Negative mg/dL [facility] Nitrite Urine Negative Negative [facility] Leukocyte Esterase Urine Large (3+)(A) Negative [facility] RBC Urine >20(A) 0 - 2 /HPF [facility] Urine WBC >50(A) 0 - 5 /HPF [facility] Urine Squamous Epithelial Cell 3-5 0 - 2 /HPF [facility] Urine Bacteria 4+ None Seen [facility] Hyaline Casts, Urine 3-5 0 - 2 /LPF [facility] Urine 01/06/2025 2:2 1 PM EDT 01/06/2025 3:58 PM EDT Narrative [facility] - 01/06/2025 4:08 PM EDT Urine, Clean Catch us Jessica العراقي MD LAB URINE ORDERABLES Fin al Result [facility] [address] [facility] [place] [address] [phone] * XR Chest 2 Views (01/02/2025 1:03 PM EST) Anatomical Region Laterality Modality Chest Radiographic Bev ging 01/02/2025 1:03 PM EST Narrative 01/02/2025 2:14 PM EST ? [facility] ?[address] ?[place] [address] ?XRay Report ? Signed ? Patient: Chuck Ayala,Joshua ?MR#: M ?? [id number] ? : 1935 ?Acct:[id number] ? Age/Sex: 89 / M ?ADM Date: 01/02/25 ? Loc: HO.[facility] ? Attending Dr: Jessica العراقي MD ? Ordering Physician: Jessica العراقي MD ?? Date of Service: 01/02/25 ?? Procedure(s): XR chest 2V ?? Accession Number(s): [id number] ? cc: Jessica العراقي MD ? EXAMINATION: ?? XR CHEST ? CLINICAL INFORMATION: ?? altered mental status /COPD ? COMPARISON: ?? Chest x-ray 11/11/2022 and 02/03/2020 ? TECHNIQUE: ?? 2 views of the chest were obtained. ? FINDINGS: ?? The lungs are hyperinflated but clear acute process. There is 9 mm ?? nodule right lung base seen on PA projection only. Heart size and poor ?? vascularity is normal. Moderate spondylosis seen throughout dorsal ?? spine. No lytic process. ? XR/XR chest 2V ?? IMPRESSION: ?? Hyperinflated lungs likely emphysema. Calcified nodule right lung base ?? likely granuloma. It is stable since 02/03/2020 ? Electronically signed by: ??Fab Torres MD ??01/02/2025 02:11 PM EST RP ? Dictated By: ?Melissa,Fab S MD ? Signed By: ?<Electronically signed by Fab Torres MD in OV> ?01/02/25 1411 ? DD/ 1303 ? TD/TT: 01/02/25 1318 ? Grief Counselor: MSM ? Procedure Note Donjade, Image - 01/02/[address] [address] XRay Report Signed Patient: Mohamud Montenegro#: M [id number] : 1935cct:[id number] Age/Sex: 89 / MADM Date: 01/02/25 Loc: HO.[facility] Attending Dr: Jessica العراقي MD Ordering Physician: Jessica العراقي MD Date of Service: 01/02/25 Procedure(s): XR chest 2V Accession Number(s): [id number] cc: Jessica العراقي MD EXAMINATION: XR CHEST CLINICAL INFORMATION: altered mental status /COPD COMPARISON: Chest x-ray 11/11/2022 and 02/03/2020 TECHNIQUE: 2 views of the chest were obtained. FINDINGS: The lungs are hyperinflated but clear acute process. There is 9 mm nodule right lung base seen on PA projection only. Heart size and poor vascularity is normal. Moderate spondylosis seen throughout dorsal spine. No lytic process. XR/XR chest 2V IMPRESSION: Hyperinflated lungs likely emphysema. Calcified nodule right lung base likely granuloma. It is stable since 02/03/2020 Electronically signed by: Fab Torres MD 01/02/2025 02:11 PM EST Dictated By: Fab Torres MD Signed By: <Electronically signed by Fab Torres MD in OV> 01/02/25 1411 DD/ 1303 TD/TT: 01/02/25 1318 Grief Counselor: [facility] Jessica العراقي MD IMG XR PROCEDURES Final Result * (ABNORMAL) Carbamazepine, Total (01/02/2025 12:54 PM EST) Carbamazepine Tegretol 4.9(L) 5.0 - 12.0 mcg/mL [facility] Blood Venous blood specimen / Unknown 01/02/2025 12:54 PM EST 01/02/2025 4:19 PM EST Jessica العراقي MD LAB BLOOD ORDERABLES Fin al Result Performing Organization Address City/[facility]/ZIP Co de Phone Number [facility] [address] [place] [phone] * (ABNORMAL) Vitamin B12/Folate, Serum Panel (01/02/2025 12:54 PM EST) Vitamin B12 450 200 - 900 pg/mL [facility] Comment:NORMAL 200-900 PG/ML INDETERMINATE 160-199 PG/ML DEFICIENT < 160 PG/ML Folate 3.6(L) > or = 4.0 ng/mL [facility] Comment:Reference Values:> o r = 4.0 ng/mL< 4.0 ng/mL suggests folate deficiency Methotrexate, aminopterin and folinic acid(leucovorin) are chemotherapeutic agents whose molecularstructures are similar to folate; therefore, the Architectfolate assay cannot be used for patients using these drugs. Blood Venous blood specimen / Unknown 01/02/2025 12:54 PM EST 01/02/2025 4:19 PM EST Jessica العراقي MD LAB BLOOD ORDERABLES Fin al Result Performing Organization Address City/[facility]/ZIP Co de Phone Number [facility] [address] [place] [phone] * TSH with Reflex to Free T4 (01/02/2025 12:54 PM EST) TSH reflex Free T4 0.63 0.32 - 4.0 uIU/mL [facility] Blood 01/02/2025 12:5 4 PM EST 01/02/2025 4:19 PM EST Jessica العراقي MD LAB BLOOD ORDERABLES Fin al Result Performing Organization Address City/[facility]/ZIP Co de Phone Number [facility] [address] [place] [phone] * (ABNORMAL) Comprehensive Metabolic Panel (01/02/2025 12:54 PM EST) Sodium 144 135 - 145 mmol/L [facility] Potassium 5.1 3.3 - 5.1 mmol/L [facility] Chloride 108 96 - 108 mmol/L [facility] Carbon Dioxide 27 22 - 29 mmol/L [facility] Anion Gap 14 12 - 20 [facility] Urea Nitrogen (BUN) 24(H) 9 - 16 mg/dL [facility] Creatinine, Serum 1.40 0.5 - 1.4 mg/dL [facility] Estimated Glomerular Filt Rate 48 [facility] Comment:Chronic Kidney Disea se: Estimated GFR < 60 mL/min/[id number] Kidney Disease: Estimated GFR < 15 mL/min/1.73m2 Glucose 154(H) 60 - 115 mg/dL [facility] Calcium 8.9 8.4 - 10.2 mg/dL [facility] Bilirubin, Total 0.3 0.0 - 1.0 mg/dL [facility] Aspartate Amino Transferase 16 5 - 37 U/L [facility] Alanine Aminotransferase 12 0 - 40 U/L [facility] Total Protein 6.7 6.5 - 8.0 g/dL [facility] Albumin Level 3.9 3.5 - 5.0 g/dL [facility] Alkaline Phosphatase 105 39 - 117 U/L [facility] Blood Venous blood specimen / Unknown 01/02/2025 12:54 PM EST 01/02/2025 4:19 PM EST us Jessica العراقي MD LAB BLOOD ORDERABLES Fin al Result Performing Organization Address City/[facility]/ZIP Co de Phone Number [facility] [address] [place] [phone] * (ABNORMAL) CBC auto differential (01/02/2025 12:54 PM EST) White Blood Count 9.1 4.8 - 10.8 X10*3/uL [facility] Red Blood Count 4.22(L) 4.60 - 5.80 X10*6/uL [facility] Hemoglobin 12.6(L) 14.0 - 18.0 g/dl [facility] Hematocrit 39.7(L) 42.0 - 52.0 % [facility] Mean Corpuscular Volume 94.1 80.0 - 98.0 fL [facility] Mean Corpuscular Hemoglobin 29.9 27.0 - 33.0 pg [facility] Mean Corpuscular HGB Conc 31.7 31.0 - 36.0 g/dl [facility] Red Cell Distribution Width 12.6 11.0 - 16.0 % [facility] Platelet Count 238 160 - 400 X10*3/uL [facility] Mean Platelet Volume 10.5 9.4 - 12.4 fL [facility] Neutrophils Percent Auto 69.8 45 - 73 % [facility] Imm Gran Pct Auto 0.5(H) 0.0 - 0.4 % [facility] Lymphocytes Percent Auto 9.8(L) 20 - 40 % [facility] Monocytes Percent Auto 7.0 2 - 11 % [facility] Eosinophils Percent Auto 12.2(H) 0 - 4 % [facility] Basophils Percent Auto 0.7 0 - 2 % [facility] NRBC Pct Auto 0.0 0.0 - 0.2 /100WBC [facility] Neutrophils Absolute Auto 6.4 2.0 - 8.3 x10*3/uL [facility] Imm Gran Abs Auto 0.05(H) 0.00 - 0.03 X10*3/uL [facility] Lymphocytes Absolute Auto 0.9(L) 1.2 - 4.9 X10*3/uL [facility] Monocytes Absolute Auto 0.6 0.1 - 1.2 X10*3/uL [facility] Eosinophils Absolute Auto 1.1(H) 0.0 - 0.4 X10*3/uL [facility] Basophils Absolute Auto 0.1 0.0 - 0.2 X10*3/uL [facility] NRBC Abs Auto 0.000 0.0 - 0.012 X10*3/uL [facility] Blood Venous blood specimen / Unknown 01/02/2025 12:54 PM EST 01/02/2025 4:19 PM EST us Jessica العراقي MD LAB BLOOD ORDERABLES Fin al Result Performing Organization Address City/State/[facility] Co de Phone Number [facility] [address] [place] [phone] documented in this encounter Visit Diagnoses Diagnosis Altered mental status, unspecified altered mental status type- Primary Moderate vascular dementia with agitation (CMS/HCC) Seizure disorder (CMS/HCC) Unspecified epilepsy without mention of intractable epilepsy Cognitive disorder Unspecified persistent mental disorders due to conditions classified elsewhere Pulmonary emphysema, unspecified emphysema type (CMS/HCC) documented in this encounter Additional Health Concerns Assessment Noted Time PHQ-9 Depression Total Score: 4 04/03/20 24 9:22 AM EDT documented as of this encounter Care Teams Window Draper Relationship Specialty Start Date End Date Jessica العراقي MD [address] [place] [phone] PCP - General Family Medicine 10/06/16 [facility] 10/08/24 01/01/25 TBS 12/26/24 documented as of this encounter
--- OUTSIDE RECORDS SUMMARY | 2025-01-06 16:21 | XMS_ITS | Encounter Summary ---
Author Organization [employer] Address [address] [facility] 7t [place] [address] Care Team Providers Care Audio Visual Design Engineer Name Role Phone Minal العراقي MD Primary Care Provider + Encounter Details Date Type Department Care Team (Late st Contact Info) Description 01/06/2025 1:00 PM EDT Telemedicine [facility] MEDICINE [address] [place], [place] [phone] Minal العراقي MD [address] [place], [place] [phone] Moderate vascular dementia with agitation (CMS/HCC) (Primary Dx); Supplemental oxygen dependent Social History Tobacco Use Types Packs/Day Years [...] as of this encounter Miscellaneous Notes * Assessment & Plan Note - Guerda Monsivais MA - 01/06/2025 1:43 PM EDT Associated Problem(s): Supplemental oxygen dependent Patient has advanced COPD with overnight Oxygen needs. Advised Anne Marie to continue 02 supply with new tubing as needed. She will monitor O2 (O2 saturation meter at home). Continue Trelegy and Albuterol PRN. * Assessment & Plan Note - Guerda Monsivais MA - 01/06/2025 1:40 PM EDT Associated Problem(s): Moderate vascular dementia with agitation (CMS/HCC) Rule out UTI, Anne Marie will bring Joshua to Lab for UA, after results will treat accordingly. Advised increased hydration and go to WIC or ED PRN if worsening mental status or fever. Continue Gabapentin 300 mg BID and Carbamazepine for behavioral symptoms. Continue B12 monthly injection. FU with Neurology. Discussed with patient regarding future placement options at SNF and will have our manager rn case reach out to them. Continue with home services with [facility] and [facility]. documented in this encounter Plan of Treatment Not on file documented as of this encounter Visit Diagnoses Diagnosis Moderate vascular dementia with agitation (CMS/HCC)- Primary Supplemental oxygen dependent Dependence on supplemental oxygen documented in this encounter Additional Health Concerns Assessment Noted Time PHQ-9 Depression Total Score: 4 04/03/20 24 9:22 AM EDT documented as of this encounter Care Teams Audio Visual Design Engineer Relationship Specialty Start Date End Date Minal العراقي MD [address] [place] [id number] PCP - General Family Medicine 10/06/16 [employer] 12/26/24 documented as of this encounter
--- OUTSIDE RECORDS SUMMARY | 2025-01-06 16:21 | XMS_ITS | Encounter Summary ---
Author Organization [employer] Address [address] [facility] 7t [place] [address] Care Team Providers Care Slasher Machine Operator Name Role Phone Minal العراقي MD Primary Care Provider + Encounter Details Date Type Department Care Team (Latest Contact Info) Description 01/06/2025 Travel Social History Tobacco Use Types Packs/Day Years [...] documented as of this encounter Care Teams Slasher Machine Operator Relationship Specialty Start Date End Date Minal العراقي MD [address] [place] [address] PCP - General Family Medicine 10/06/16 [employer] 12/26/24 documented as of this encounter
--- OUTSIDE RECORDS SUMMARY | 2025-01-06 16:21 | XMS_ITS | Encounter Summary ---
Author Organization [employer] Address [address] [facility] 7t [place] [address] Care Team Providers Care Independent Trader Name Role Phone Minal العراقي MD Primary Care Provider + Reason for Visit * Reason Onset Date Comments Care Coordination 01/03/2025 Encounter Details Date Type Department Care Team ([facility] st Contact Info) Description 01/03/2025 Telephone [facility] MEDICINE [address] [place] [address] Minal العراقي MD [address] [place], [place] [phone] Care Coordination Social History Tobacco Use Types [...] Encounter - Yolie Martines RN - 01/03/2025 1:11 PM EST Images from the original note were not included. Incoming call from daughter (on HIPAA) in regards to below message. Daughter verbalized understanding regarding BW results and POC regarding folic acid. Daughter reports the patient is already takingcarbamazepine 100mg Bid rx'd by the neurologist. Daughter informed RN will send a message to PCP toinquire on dosing increase/change as PCP was not aware patient was taking this dose already and RN will return call to daughter. RN spoke to daughter at length regarding [facility]. Daughter reports [facility] however they are unable to assist as the patients condition is not related to his service. Daughter is feeling very conflicted regarding SNF and personal feelings of failure as a daughter. Daughter was very thankful for RN's guidance and reassurance. Daughter reports she is aware she needs to bring the patient to the ED as she is unable to care for him safely at home. Daughter reports she would like to discuss with the patient first in orderfor him to not feel abandoned. Sending to PCP as FYI regarding carbamazepine medication dose. Minal العراقي MD [facility] Red Team Nurses Labs on 01/02/2025 showed low folic acid [...] Encounter - Yolie Martines RN - 01/03/2025 11:44 AM EST Images from the original note were not included. TC placed to daughter [phone] in regards to below message. Daughter did not answer, RN left VMrequesting CB to red team nurses. RN will re-attempt in PM. TC placed [facility] neurology [phone] to inform PCP has increased carbamazepine 100mg to BID. [facility] neurology verbalized understanding and will send message to neurologist (Dr. Valenzuela) as FYI. Minal العراقي MD [facility] Team Nurses Labs on 01/02/2025 showed low folic acid [...] the patient has not had any seizures. documented in this encounter Plan of Treatment Not on file documented as of this encounter Visit Diagnoses Not on filedocumented in this encounter Additional Health Concerns Assessment Noted Time PHQ-9 Depression Total Score: 4 04/03/20 24 9:22 AM EDT documented as of this encounter Care Teams Independent Trader Relationship Specialty Start Date End Date Minal العراقي MD [address] [place] [id number] PCP - General Family Medicine 10/06/16 [employer] 12/26/24 documented as of this encounter
--- OUTSIDE RECORDS SUMMARY | 2025-01-06 16:21 | XMS_ITS | Encounter Summary ---
Author Organization [employer] Address [address] [facility] 7t [place] [address] Care Team Providers Care Gantry Crane Operator Name Role Phone Minal العراقي MD Primary Care Provider + Reason for Visit * Reason Onset Date Comments Care Coordination 12/20/2024 Encounter Details Date Type Department Care Team ([facility] st Contact Info) Description 12/20/2024 Telephone [facility] MEDICINE [address] [place] [address] Minal العراقي MD [address] [place], [place] [phone] Care Coordination Social History Tobacco Use Types [...] Telephone Encounter - Yolie Martines RN - 12/20/2024 2:43 PM EST [facility] reports they are unable to take patient on for services as they are at capacity in his area. TC placed to daughter [phone] to inform of above message. Daughter informed RN will refer patient to S on Monday and will keep daughter updated. Daughter verbalized understanding. Daughter to f/u PRN. * Telephone Encounter - Yolie Martines RN - 12/20/2024 1:16 PM EST Referral to [facility] faxed with facesheet and OV note to [phone], confirmation page received. [facility]. * Telephone Encounter - Yolie Martines RN - 12/20/2024 12:09 PM EST TC placed to Stella [facility] [phone] in regards to below message. Stella did not answer, RN left VM requesting CB to red team nurses. TC placed to [facility] [phone] to confirm patient is still active with their agency. RN was informed the patient missed a visit d/t being admitted to the hospital and the daughter informed them he would be going to a STR after being discharged from the hospital. [facility] reports on 2/7/25 they attempted to discharge the patient however he was not home therefore they were not able to discharge him. RN inquired on how to resume VNA services since the patient is now home from rehab again. RN was advised to speak to the intake department. Intake reports the patients certification period was 10/08/25-12/06/24. At the end of the certification period the VNA agency has to either re-certify the patient or discharge the patient. Since the patient was admitted to a rehab during the time when the certification period was over, they were unable to re-certify him therefore he was discharged from services. [facility] reports they are unsure if th ey are able to take the patient back on as they are full in his area however recommended RN send a NEW referral to [phone] and they will have their manager process excellence to see if they can take him back on. PCP notified to make an addendum to OV note stating need for VNA services and what kind of servicesPCP is seeking. PCP notified to advise RN once addendum is complete for RN to fax referral. PCP reports the daughter informed her that the patient was going to have VNA services coming out this weekend. PCP informed RN would call daughter to inquire on which agency daughter believes is going out. Daughter reports [facility]. Daughter informed of above regarding [facility] and is aware RN will place new referral now. Daughter verbalized understanding. Daughter to f/u PRN. ----- Message from Minal العراقي MD sent at 12/20/2024 10:26 AM EST ----- Second was discharged from SNF on 12/19/2024 where he was out for extended rehab. Please call VNA toresume B12 injections monthly and continue pharmacal location, medication administration and safetyevaluation at home. Patient may need evaluation for placement, I will discuss this with Nay hairstno. documented in this encounter Plan of Treatment Not on file documented as of this encounter Visit Diagnoses Not on filedocumented in this encounter Additional Health Concerns Assessment Noted Time PHQ-9 Depression Total Score: 4 04/03/20 24 9:22 AM EDT documented as of this encounter Care Teams Gantry Crane Operator Relationship Specialty Start Date End Date Minal العراقي MD [address] [place] [id number] PCP - General Family Medicine 10/06/16 [facility] 10/08/24 01/01/25 documented as of this encounter
--- OUTSIDE RECORDS SUMMARY | 2025-01-06 16:22 | XMS_ITS | Encounter Summary ---
Author Organization [employer] Address [address] [facility] 7t [place] [address] Care Team Providers Care Cooling Machine Operator Name Role Phone Minal العراقي MD Primary Care Provider + Reason for Visit * Reason Comments Med Refill Encounter Details Date Type Department Care Team (Late st Contact Info) Description 12/28/2024 Refill [facility] MEDICINE [address] [place], [place] [phone] Minal العراقي MD [address] [place], [place] [phone] Acute left lower quadrant pain Social History Tobacco Use Types Packs/Day Years [...] as of this encounter Visit Diagnoses Diagnosis Acute left lower quadrant pain documented in this encounter Additional Health Concerns Assessment Noted Time PHQ-9 Depression Total Score: 4 04/03/20 9:22 AM EDT documented as of this encounter Care Teams Cooling Machine Operator Relationship Specialty Start Date End Date Minal العراقي MD [address] [place] [address] PCP - General Family Medicine 10/06/16 [facility] 10/08/24 01/01/25 [employer] 12/26/24 documented as of this encounter
--- OUTSIDE RECORDS SUMMARY | 2025-01-06 16:22 | XMS_ITS | Encounter Summary ---
Author Organization [employer] Address 75 [facility] 7t [place] [address] Care Team Providers Care Wet Press Tender Name Role Phone Minal العراقي MD Primary Care Provider + Reason for Visit * Reason Comments Med Refill Encounter Details Date Type Department Care Team ([facility] st Contact Info) Description 08/23/2023 Refill [facility] [address] [place] [phone] Delores Smith MD [address] [place], [place] [phone] Social History Tobacco Use Types Packs/Day Years Used Date Smoking Tobacco: Former Cigarettes Smokeless Tobacco: Never Alcohol Use Standard Drinks/Week Comments Never 0 (1 standard drink = 0.6 oz pur e alcohol) Housing Stability Answer Date Recorded What is your housing situation today? I have viji benjamin 08/22/[address] you li ve. Do you have problems with any of the following? None of the above 08/22/2023 Food Insecurity Answer Date Recorded Within the past 12 months, y ou worried that your food would run out before you got money to buy more: Never True 08/22/2023 Within the past 12 months,th e food you bought just didn't last and you didn't have enough money to get more: Never True Transportation Answer Date Recorded In the past 12 months, has l ack of transportation kept you from medical appts, meetings, work or from getting things needed for daily living? No 08/22/2023 Utilities Answer Date Recorded In the past 12 months, has t he electric, gas, oil or water company threatened to shut off services in your home? No 08/22/2023 Depression Answer Date Recorded Patient Health Questionnaire-2 Score 0 11/24/2022 Sex and Gender Information Value Date Recorded Sex Assigned at Male 08/29/2022 10:29 AM EDT Legal Sex Male 10:29 AM EDT Gender Identity Male 08/29/2022 10:29 AM EDT Sexual Orientation Straight 08/29/2022 10 :29 AM EDT documented as of this encounter Plan of Treatment Not on file documented as of this encounter Visit Diagnoses Not on filedocumented in this encounter Care Teams Wet Press Tender Relationship Specialty Start Date End Date Minal العراقي MD [address] [place] [address] PCP - General Family Medicine 10/06/16 [facility] 10/08/24 01/01/25 [employer] 12/26/24 documented as of this encounter
--- OUTSIDE RECORDS SUMMARY | 2025-01-06 16:22 | XMS_ITS | Encounter Summary ---
Author Organization [email or web address] Address 75 [facility] 7t [place] [address] Care Team Providers Care Explosive Ordnance Manager Name Role Phone Minal العراقي MD Primary Care Provider + Reason for Visit * Reason Onset Date Comments Call Back Request 11/28/2024 Encounter Details Date Type Department Care Team ([facility] st Contact Info) Description 11/28/2024 Telephone [facility] MEDICINE [address] [place] [address] Minal العراقي MD [address] [place], [place] [phone] Call Back Request Social History Tobacco Use Types Packs/Day Years [...] encounter Miscellaneous Notes * Telephone Encounter - Dominique Vasquez - 12/10/2024 1:05 PM EST Call was returned to Cynthia at [facility]. She was informed that patient's oxygen is ordered by [facility]. Cynthia stated that she had already reached out to that office and was wait for a fax with the information she needs. No other action is needed from our office at this time. * Telephone Encounter - Hammad Gonzalez - 12/09/2024 12:15 PM EST TC from pt requesting a call back. Cynthia states that she did not receive any call back regarding Prior message. Contact Cynthia at [phone] * Telephone Encounter - Pooja Quiroz - 12/05/2024 12:26 PM EST Tc from Cynthia requesting a call back regarding message below. Contact: * Telephone Encounter - Tevin Jaeger - 11/28/2024 11:15 AM EST TC from Cynthia from [facility] checking status on script for Oxygen . Also wanted to clarify whether or not pt only utilizes Oxygen at night , if so they would have to take back his portable oxygen concentrator documented in this encounter Plan of Treatment Not on file documented as of this encounter Visit Diagnoses Not on filedocumented in this encounter Additional Health Concerns Assessment Noted Time PHQ-9 Depression Total Score: 4 04/03/20 9:22 AM EDT documented as of this encounter Care Teams Explosive Ordnance Manager Relationship Specialty Start Date End Date Minal العراقي MD [address] [place] [id number] PCP - General Family Medicine 10/06/16 [facility] 10/08/24 01/01/25 documented as of this encounter
--- OUTSIDE RECORDS SUMMARY | 2025-01-06 16:22 | XMS_ITS | Encounter Summary ---
Author Organization [employer] Address 75 [facility] 7t [place] [address] Care Team Providers Care Product Safety Head Name Role Phone Minal العراقي MD Primary Care Provider + Encounter Details Date Type Department Care Team (Latest Contact Info) Description 12/20/2024 Travel Social History Tobacco Use Types Packs/Day [...] documented as of this encounter Care Teams Product Safety Head Relationship Specialty Start Date End Date Minal العراقي MD [address] [place] [address] PCP - General Family Medicine 10/06/16 [facility] 10/08/24 01/01/25 documented as of this encounter
--- OUTSIDE RECORDS SUMMARY | 2025-01-06 16:22 | XMS_ITS | Encounter Summary ---
Author Organization [employer] Address [address] [facility] 7t h Floor [place] [phone] Care Team Providers Care Security Rover Name Role Phone Minal العراقي MD Primary Care Provider + Reason for Visit * Reason Comments Follow-up Encounter Details Date Type Department Care Team (Latest Contact Info) Description 12/20/2024 9:00 AM EST Office Visit [facility] [address] [place], [place] [phone] Minal العراقي MD [address] [place], [place] [phone] Pulmonary emphysema, unspecified emphysema type (CMS/HCC) (Primary Dx); Seizure disorder (CMS/HCC); B12 deficiency; History of hemorrhagic cerebrovascular accident (CVA) with residual deficit; Type 2 diabetes mellitus without complication, without long-term current use of insulin (CMS/HCC); Overweight; Dietary counseling; Exercise counseling Social History Tobacco Use Types Packs/Day Years Used Date Smoking Tobacco: Former Smokeless Tobacco: Never Tobacco Cessation:Counseling Given: Not Answered Alcohol Use Standard Drinks/Week Comments Never 0 [...] AM EDT documented as of this encounter Last Filed Vital Signs Vital Sign Reading Time Taken Comments Blood Pressure 138/71 12/20/2024 8:56 AM EST Pulse 74 12/20/2024 8:56 AM EST Temperature 35.7 ??C (96.3 ??F) 12/20/2024 8:56 AM ES T Respiratory Rate 16 12/20/2024 8:56 AM EST Oxygen Saturation 90% 12/20/2024 8:56 AM EST Inhaled Oxygen Concentration - - Weight 73.5 kg (162 lb 2 oz) 12/20/2024 8:56 AM EST Height 162.6 cm (5' 4 ) 12/20/2024 8:56 AM EST Body Mass Index 27.83 12/20/2024 8:56 AM EST documented in this encounter Progress Notes * Minal العراقي MD - 12/20/2024 9:00 AM EST SUBJECTIVE: Joshua Ayala is a 89 y.o. year old male who presents for FU COPD . Denies recent illness, injury, or hospitalization. Patient here with to follow-up gabapentin titration. Gabapentin had been cut down last month to 300mg nightly due to excessive sedation and weakness. In the interim patient was admitted to [facility] on 12/04/2024 due to weakness/COPD exacerbation. He was treated with inhalers and discharged to a residential for rehab on 12/06/2024. No discharge summary available at this time. According to [facility] discharge summary he was on trilogy, carbamazepine 100 mg twice daily, bupropion 200 mg twice daily, he is back on gabapentin 300 mg 3times daily and Keppra 750 mg twice daily. He is also on trazodone 50 mg nightly and mirtazapine 7.5 mg nightly plus Seroquel 50 mg nightly. He was discharged home on 12/19/2024. Patient tells me that overall he is doing well, denies respiratory distress and has occasional dry cough. He is using oxygen overnight and is sleeping well. His daughter tells me that he did significantly better on tiredness after gabapentin was lowered tonightly only, she gave him gabapentin last night only as well. Acute Concerns: There is concern regarding placement. Patient ended up in the hospital after she was hospitalized for severe condition and patient had refused to eat. Her daughter was watching him but he refused to take his medications as well. She tells me that he has been increasingly withdrawn, occasionally notoriented and talks about facts from years past. Today he tells me that he was already plays with some practitioners like medical school but he did not know where he was, he was essentially unable to say that he was at a skilled rehab facility and the reason for it. He was unable to describe what heate the day before and what he had for breakfast this morning. Social History Social History Narrative Not on file Patient Active Problem List Diagnosis COPD with emphysema (CMS/HCC) Mixed hyperlipidemia Drug-induced constipation IFG (impaired fasting glucose) Allergic conjunctivitis Arthritis Benign essential hypertension Chronic low back pain Chronic post-traumatic headache Coronary atherosclerosis Neuropathy Seasonal allergic rhinitis Seizure disorder (CMS/HCC) Stage 3 chronic kidney disease (CMS/HCC) Subdural hematoma (CMS/HCC) Syncope Decrease in appetite Dizziness Idiopathic osteoarthritis Increased frequency of urination Tinea pedis Lung nodule seen on imaging study Diverticulosis of colon Oral candidiasis Acute pain of left shoulder Grief B12 deficiency Long toenail Right hip pain Oral leukoplakia Diverticulitis of large intestine with perforation without abscess or bleeding Stress incontinence of urine Recurrent major depressive disorder, 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 Review of Systems Constitutional: Positive for fatigue. Negative for fever. HENT: Negative for congestion, ear pain, rhinorrhea and sore throat. Eyes: Negative for pain and discharge. Respiratory: Positive for cough and shortness of breath. Cardiovascular: Negative for chest pain. Gastrointestinal: Negative for abdominal pain, constipation, diarrhea and nausea. Endocrine: Negative for polydipsia. Genitourinary: Negative for dysuria and frequency. Musculoskeletal: Positive for arthralgias and gait problem. Negative for back pain and neck pain. Neurological: Positive for weakness. Negative for dizziness, numbness and headaches. Psychiatric/Behavioral: Positive for confusion. Negative for agitation. OBJECTIVE: Vitals: 12/20/24 0856 BP: 138/71 Pulse: 74 Resp: 16 Temp: 96.3 ??F (35.7 ??C) SpO2: 90% Physical Exam Constitutional: Appearance: Normal appearance. HENT: Right Ear: Tympanic membrane and ear canal normal. Left Ear: Tympanic membrane and ear canal normal. Mouth/Throat: Mouth: Mucous membranes are moist. Pharynx: No oropharyngeal exudate or posterior oropharyngeal erythema. Eyes: Pupils: Pupils are equal, round, and reactive to light. Cardiovascular: Rate and Rhythm: Normal rate and regular rhythm. Heart sounds: No murmur heard. Pulmonary: Breath sounds: Examination of the right-middle field reveals rhonchi. Examination of the left-middle field reveals rhonchi. Examination of the right- lower field reveals rhonchi. Examination of the left-lower field reveals rhonchi. Rhonchi present. No wheezing. Abdominal: General: Bowel sounds are normal. Palpations: Abdomen is soft. Tenderness: There is no abdominal tenderness. Musculoskeletal: General: No tenderness. Normal range of motion. Cervical back: Normal range of motion. No tenderness. Skin: General: Skin is warm. Neurological: General: No focal deficit present. Mental Status: He is alert. Cranial Nerves: Cranial nerves 2-12 are intact. Motor: Motor function is intact. Gait: Gait abnormal. Psychiatric: Mood and Affect: Mood normal. Speech: Speech is delayed. Behavior: Behavior normal. Behavior is cooperative. Problem List Items Addressed This Visit COPD with emphysema (CMS/HCC) - Primary He has not had any recent exacerbations since last year hospitalization. He received RSV immunizationx on 12/12/2024 and COVID booster on 10/27/2023 Continue Trelegy and follow-up with pulmonology Continue overnight O2. Advised to use albuterol inhaler 3 times daily for the next 3 days then as needed, reconsult as needed worsening shortness of breath, change in color of sputum or respiratory distress. Seizure disorder ([facility]) He has not had any new seizures in approximately 6 months. He will continue on carbamazepine and Lamictal same dose, I will lower again gabapentin to 300 mg nightly and follow-up in 4 weeks. I told her daughter and patient to watch for symptoms of neuropathyas well. They should follow-up with Dr. Valenzuela at [facility] neurology, her daughter will check on the date of the next appointment. Patient needs to continue with home services, avoid staying by himself due to multiple chronic conditions, risk of seizures and recurrent falls with head concussion and internal bleeding. Will check with care management regarding options for patient's placement in a long-term care facility I discussed with patient's daughter,. B12 deficiency He is due for injection this month, due to difficulty leaving the home well as the VNA to take overB12 supplementation. History of hemorrhagic cerebrovascular accident (CVA) with residual deficit Patient is significantly debilitated after recurrent subdural hematomas, falls and microvascular disease. He needs assistance in most of his ADLs. Given that his daughter who is primary assault boat coxswain care has been progressively sick this past year, [facility]ed [facility] for [facility], will discuss with insurance what their options are. At this time he is safe at home and will continue with home care and VNA for medication administration (b12 inj + multiple PO meds), pharmacological education Type 2 diabetes mellitus without complication, without long-term current use of insulin ([facility]) Controlled, fu at next appt Relevant Orders POCT Glucose (Completed) Overweight Discussed re weight reduction options including exercise, life style modifications, diet. Recommended to decrease soda and sugary beverage consumption, increase protein intake with meals (at least 1 portion of protein with each meal) to assist with satiety, increase dietary fiber Other Visit Diagnoses Dietary counseling Exercise counseling Follow Up: Current Outpatient Medications on File Prior to Visit Medication Sig Dispense Refill acetaminophen (Tylenol) 500 MG tablet take 1 tablet by oral route every6 -8 hours as needed not to exceed 4 tablets per 24hrs albuterol (2.5 MG/3ML) 0.083% nebulizer solution Take 3 mL (2.5 mg) by nebulization every 6 (six) hours if needed for wheezing. 75 mL 11 albuterol 108 (90 Base) MCG/ACT inhaler TOME DOS INHALACIONES POR VIA ORAL CADA CUATRO A SEIS HORASCUANDO SEA NECESARIO 8.5 g 1 Alcohol Swabs (B-D SINGLE USE SWABS REGULAR) pads USE TO TEST BLOOD SUGAR 1X TIMES DAILY 100 each 11 Blood Glucose Monitoring Suppl ([employer] [place] Lite) w/Device kit Use to test blood sugar 1x times daily 1 kit 0 carBAMazepine (TEGretol) 100 MG chewable tablet TAKE 1/2 TABLET BY MOUTH TWICE A DAY. IF PAIN RECURRS, INCREASE TO 1 TABLET TWICE A DAY cyanocobalamin (Vitamin B-12) 1000 MCG/ML injection INJECT 1 ML BY INTRAMUSCULAR ROUTE MONTHLY 9 mL1 D3 Super Strength 50 MCG (2000 UT) capsule TOME KEI CAPSULA TODOS LOS GALDAMEZ 90 capsule 2 Diclofenac Sodium 1 % gel APPLY 2 GRAMS TOPICALLY IF NEEDED IN THE MORNING AND EVENING 100 g 0 docusate sodium (Colace) 100 MG capsule TAKE 1 CAPSULE BY MOUTH TWICE A DAY 180 capsule 1 Etxnmxcechx-Evhjnarpp-Xvqamv (Trelegy Ellipta) 200-62.5-25 MCG/ACT aerosol powder Inhale 1 puff Once per day. 1 each 11 FREESTYLE LITE test strip Use to test blood sugar 1x times daily 100 each 12 gabapentin (Neurontin) 300 MG capsule Take 1 capsule (300 mg) by mouth at bedtime. 90 capsule 1 Lancets misc Use to test blood sugar 1x times daily 100 each 0 levETIRAcetam (Keppra) 750 MG tablet Take 1 tablet by mouth 2 times daily. Melatonin 5 MG tablet dispersible Take 1 tablet (5 mg) by mouth Once daily. 30 tablet 11 metoprolol tartrate (Lopressor) 25 MG tablet TAKE 1/2 TABLET POR VIA ORAL DOS VECES AL ZULEMA 90 tablet 3 Nebulizers (InnoSpire Elegance Nebulizer) misc USE QID PRN SOB/COUGH WITH NEBULIZER MACHINE 1 each 3 pantoprazole (ProtoNix) 20 MG EC tablet Take 20 mg by mouth. polyethylene glycol, PEG, 3350 (GaviLAX) 17 GM/SCOOP powder Take 17 g by mouth if needed each day (constipation). 510 g 11 QUEtiapine (SEROquel) 25 MG tablet TOME DOS TABLETAS POR VIA ORAL TODOS LOS GALDAMEZ 180 tablet 1 simvastatin (Zocor) 40 MG tablet TAKE 1 TABLET BY MOUTH AT BEDTIME 90 tablet 1 traZODone (Desyrel) 50 MG tablet Take 1 tablet (50 mg) by mouth at bedtime. 30 tablet 11 Current Facility-Administered Medications on File Prior to Visit Medication Dose Route Frequency Provider Last Rate Last Admin cyanocobalamin (Vitamin B-12) injection 1,000 mcg 1,000 mcg Intramuscular q30 days Minal العراقي MD 1,000 mcg at 11/19/24 1156 documented in this encounter Miscellaneous Notes * Assessment & Plan Note - Minal العراقي MD - 12/20/2024 1:12 PM EST Associated Problem(s): Overweight Discussed re weight reduction options including exercise, life style modifications, diet. Recommended to decrease soda and sugary beverage consumption, increase protein intake with meals (at least 1 portion of protein with each meal) to assist with satiety, increase dietary fiber * Assessment & Plan Note - Minal العراقي MD - 12/20/2024 1:11 PM EST Associated Problem(s): Type 2 diabetes mellitus without complication, without long-term current useof insulin ([facility]) Controlled, fu at next appt * Assessment & Plan Note - Minal العراقي MD - 12/20/2024 10:24 AM EST Associated Problem(s): History of hemorrhagic cerebrovascular accident (CVA) with residual deficit Patient is significantly debilitated after recurrent subdural hematomas, falls and microvascular disease. He needs assistance in most of his ADLs. Given that his daughter who is primary assault boat coxswain care has been progressively sick this past year, [facility] for [facility], will discuss with insurance what their options are. At this time he is safe at home and will continue with home care and VNA for medication administration (b12 inj + multiple PO meds), pharmacological education * Assessment & Plan Note - Minal العراقي MD - 12/20/2024 10:23 AM EST Associated Problem(s): B12 deficiency He is due for injection this month, due to difficulty leaving the home well as the VNA to take overB12 supplementation. * Assessment & Plan Note - Minal العراقي MD - 12/20/2024 9:35 AM EST Associated Problem(s): COPD with emphysema (CMS/HCC) He has not had any recent exacerbations since last year hospitalization. He received RSV immunizationx on 12/12/2024 and COVID booster on 10/27/2023 Continue Trelegy and follow-up with pulmonology Continue overnight O2. Advised to use albuterol inhaler 3 times daily for the next 3 days then as needed, reconsult as needed worsening shortness of breath, change in color of sputum or respiratory distress. * Assessment & Plan Note - Minal العراقي MD - 12/20/2024 9:34 AM EST Associated Problem(s): Seizure disorder (CMS/HCC) He has not had any new seizures in approximately 6 months. He will continue on carbamazepine and Lamictal same dose, I will lower again gabapentin to 300 mg nightly and follow-up in 4 weeks. I told her daughter and patient to watch for symptoms of neuropathyas well. They should follow-up with Dr. Valenzuela at [facility] neurology, her daughter will check on the date of the next appointment. Patient needs to continue with home services, avoid staying by himself due to multiple chronic conditions, risk of seizures and recurrent falls with head concussion and internal bleeding. Will check with care management regarding options for patient's placement in a long-term care facility I discussed with patient's daughter,. documented in this encounter Plan of Treatment Not on file documented as of this encounter Procedures Procedure Name Priority Date/Time Associated Diagnosis Comments POCT GLUCOSE Routine 12/20/2024 8:57 AM EST Type 2 diabetes mellitus without complication, without long-term current use of insulin (CMS/HCC) documented in this encounter Results * POCT Glucose (12/20/2024 8:57 AM EST) Glucose Blood, POC 139 60 - 200 mg/dL QC Media Lot # [id number] Lot# Expiration Date [id number] Blood Capillary blood specimen / Unknown 12/20/2024 8:57 AM EST Minal العراقي MD POINT OF CARE TEST ENTER /EDIT ORDERABLES Final Result documented in this encounter Visit Diagnoses Diagnosis Pulmonary emphysema, unspecified emphysema type (CMS/HCC)- Primary Seizure disorder (CMS/HCC) Unspecified epilepsy without mention of intractable epilepsy B12 deficiency History of hemorrhagic cerebrovascular accident (CVA) with residual deficit Type 2 diabetes mellitus without complication, without long-term current use of insulin (CMS/HCC) Overweight Dietary counseling Dietary surveillance and counseling Exercise counseling documented in this encounter Additional Health Concerns Assessment Noted Time PHQ-9 Depression Total Score: 4 04/03/20 24 9:22 AM EDT documented as of this encounter Care Teams Security Rover Relationship Specialty Start Date End Date Minal العراقي MD [address] [place] [id number] PCP - General Family Medicine 10/06/16 [facility] 10/08/24 01/01/25 documented as of this encounter
--- OUTSIDE RECORDS SUMMARY | 2025-01-06 16:22 | XMS_ITS | Encounter Summary ---
Author Organization [employer] Address [address] [facility] 7t [place] [address] Care Team Providers Care Industrial Engineering Intern Name Role Phone Minal العراقي MD Primary Care Provider + Reason for Visit * Reason Comments Med Refill Encounter Details Date Type Department Care Team ([facility] st Contact Info) Description 12/18/2024 Refill [facility] [address] [place], [place] [phone] Minal العراقي MD [address] [place], [place] [phone] Social History Tobacco Use Types Packs/Day Years [...] documented as of this encounter Care Teams Industrial Engineering Intern Relationship Specialty Start Date End Date Minal العراقي MD [address] [place] [phone] PCP - General Family Medicine 10/06/16 [facility] 10/08/24 01/01/25 [employer] 12/26/24 documented as of this encounter
--- OUTSIDE RECORDS SUMMARY | 2025-01-06 16:22 | XMS_ITS | Encounter Summary ---
Author Organization [employer] Address [address] [facility] 7t [place] [address] Care Team Providers Care Outdoor Adventure Instructor Name Role Phone Minal العراقي MD Primary Care Provider + Encounter Details Date Type Department Care Team (Late st Contact Info) Description 04/13/2023 Orders Only [facility] [address] [place], [place] [phone] Minal العراقي MD [address] [place], [place] [phone] Social History Tobacco Use Types Packs/Day Years Used Date Smoking Tobacco: Former Cigarettes Smokeless Tobacco: Never Alcohol Use Standard Drinks/Week Comments Never 0 (1 standard drink = 0.6 oz pur e alcohol) Depression Answer Date Recorded Patient Health Questionnaire-2 Score 0 11/24/2022 Sex and Gender Information Value Date Recorded Sex Assigned at Male 08/29/2022 10:29 AM EDT Legal Sex Male 10:29 AM EDT Gender Identity Male 08/29/2022 10:29 AM EDT Sexual Orientation Straight 08/29/2022 10 :29 AM EDT COVID-19 Exposure Response Date Recorded In the last 10 days, have yo u been in contact with someone who was confirmed or suspected to have Coronavirus/COVID-19? No / Unsure 04/13/2023 10:36 AM EDT documented as of this encounter Plan of Treatment Not on file documented as of this encounter Visit Diagnoses Not on filedocumented in this encounter Care Teams Outdoor Adventure Instructor Relationship Specialty Start Date End Date Minal العراقي MD [address] [place], [place] [phone] PCP - General Family Medicine 10/06/16 [facility] 10/08/24 01/01/25 [employer] 12/26/24 documented as of this encounter
--- OUTSIDE RECORDS SUMMARY | 2025-01-06 16:22 | XMS_ITS | Encounter Summary ---
Author Organization [employer] Address [address] [facility] 7t [place] [address] Care Team Providers Care Calender Roll Press Operator Name Role Phone Minal العراقي MD Primary Care Provider + Reason for Visit * Reason Onset Date Comments Chart prep 12/17/2024 Encounter Details Date Type Department Care Team ([facility] st Contact Info) Description 12/17/2024 Telephone [facility]INE [address] [place] [address] Minal العراقي MD [address] [place], [place] [phone] Chart prep Social History Tobacco Use Types Packs/Day Years [...] encounter Miscellaneous Notes * Telephone Encounter - Nidia Joiner MA - 12/17/2024 9:48 AM EST Chart Prep Labs: done Images: not done Vaccines due: yes Referrals: complete Screenings: eye exam Overdue care gaps: Glucose documented in this encounter Plan of Treatment Not on file documented as of this encounter Visit Diagnoses Not on filedocumented in this encounter Additional Health Concerns Assessment Noted Time PHQ-9 Depression Total Score: 4 04/03/20 24 9:22 AM EDT documented as of this encounter Care Teams Calender Roll Press Operator Relationship Specialty Start Date End Date Minal العراقي MD [address] [place] [address] PCP - General Family Medicine 10/06/16 [facility] 10/08/24 01/01/25 documented as of this encounter
--- OUTSIDE RECORDS SUMMARY | 2025-01-06 16:22 | XMS_ITS | Encounter Summary ---
Author Organization [email or web address] Address [address] [facility] 7t [place] [address] Care Team Providers Care Vp Director Of Finance Name Role Phone Minal العراقي MD Primary Care Provider + Reason for Visit * Reason Onset Date Comments Appointment Request 12/20/2023 Encounter Details Date Type Department Care Team ([facility] st Contact Info) Description 12/20/2023 Telephone [facility] [address] [place] [address] Minal العراقي MD [address] [place], [place] [phone] Appointment Request Social History Tobacco Use Types Packs/Day Years Used Date Smoking Tobacco: Former Cigarettes Smokeless Tobacco: Never Alcohol Use Standard Drinks/Week Comments Never 0 (1 standard drink = 0.6 oz pur e alcohol) Housing Stability Answer Date Recorded What is your housing situation today? I have vijikristan benjamin 08/22/[address] you [...] encounter Miscellaneous Notes * Telephone Encounter - Contreras Velázquez - 12/20/2023 10:27 AM EST Tc from patients daughter calling to request a follow up appt states was advised by the Provider chas in 6 weeks after last visit however specifications writer does not see any documentation on patients chart regarding that information. documented in this encounter Plan of Treatment Not on file documented as of this encounter Visit Diagnoses Not on filedocumented in this encounter Care Teams Vp Director Of Finance Relationship Specialty Start Date End Date Minal العراقي MD [address] [place] [id number] PCP - General Family Medicine 10/06/16 [facility] 10/08/24 01/01/25 [employer] 12/26/24 documented as of this encounter
--- OUTSIDE RECORDS SUMMARY | 2025-01-06 16:22 | XMS_ITS | Encounter Summary ---
Author Organization [employer] Address [address] [facility] 7t [place] [address] Care Team Providers Care Preschool Adviser Name Role Phone Minal العراقي MD Primary Care Provider + Reason for Visit * Reason Comments Med Refill Encounter Details Date Type Department Care Team ([facility] st Contact Info) Description 08/23/2023 Refill [facility] MEDICINE [address] [place], [place] [phone] [facility] [address] [place], [place] [phone] Acute left lower quadrant pain Social History [...] lower quadrant pain documented in this encounter Care Teams Preschool Adviser Relationship Specialty Start Date End Date Minal العراقي MD [address] [place] [address] PCP - General Family Medicine 10/06/16 [facility] 10/08/24 01/01/25 [employer] 12/26/24 documented as of this encounter
--- OUTSIDE RECORDS SUMMARY | 2025-01-06 16:22 | XMS_ITS | Encounter Summary ---
Author Organization [employer] Address [address] [facility] 7t [place] [address] Care Team Providers Care Nitrator Operator Name Role Phone Minal العراقي MD Primary Care Provider + Reason for Visit * Reason Onset Date Comments Appointment Request 02/14/2023 Encounter Details Date Type Department Care Team ([facility] st Contact Info) Description 02/14/2023 Telephone [facility] [address] [place] [address] Minal العراقي MD [address] [place], [place] [phone] Appointment Request Social History Tobacco Use Types [...] suspected to have Coronavirus/COVID-19? No / Unsure 01/30/2023 2:14 PM EDT documented as of this encounter Miscellaneous Notes * Telephone Encounter - Natalie Sherwood RN - 02/14/2023 10:52 AM EDT Call to Joshua Ayala daughter Anne Marie who is on HIPPA. Reports pt having leg weakness x 2 weeks. Per daughter has appt with Neurologist but not until a few weeks out. Per daughter also wanted to book appt with PCP for routine follow up as well as results of CT Scan done last week. Pt booked for OV with PCP on 03/15/23 at 10am. Pt daughter advised to seek WIC for new onset leg weakness . Reviewed operating hours and that wait times vary. Pt daughter agrees. Will send to team to follow up on CT scan results with pt daughter. Protocol Used: Weakness (Generalized) and Fatigue (Adult) Protocol-Based Disposition: See in Office or Video Visit within 3 Days Video visit offer not recorded Positive Triage Question: * Mild weakness (i.e., does not interfere with ability to work, go to school, normal activities) and persists > 1 week * All higher-acuity triage questions were negative Care Advice Discussed: * Reassurance and Education - Mild Weakness * Reasons To Call Back - Unable to stand or walk - Passes out - You become worse * Telephone Encounter - Luis Carlos Abel - 02/14/2023 10:28 AM EDT Symptom: Weakness Outcome: Transfer to a nurse or provider NOW! Reason: Can't stand The caller accepted this outcome Please contact pt daughter at [phone] documented in this encounter Plan of Treatment Not on file documented as of this encounter Visit Diagnoses Not on filedocumented in this encounter Care Teams Nitrator Operator Relationship Specialty Start Date End Date Minal العراقي MD [address] [place] [phone] PCP - General Family Medicine 10/06/16 [facility] 10/08/24 01/01/25 [employer] 12/26/24 documented as of this encounter
--- OUTSIDE RECORDS SUMMARY | 2025-01-06 16:22 | XMS_ITS | Encounter Summary ---
Author Organization [employer] Address [address] [facility] 7t [place] [address] Care Team Providers Care Engineering Librarian Name Role Phone Minal العراقي MD Primary Care Provider + Reason for Visit * Reason Onset Date Comments Hospital Follow-up 04/26/2024 Encounter Details Date Type Department Care Team ([facility] st Contact Info) Description 04/26/2024 Telephone [facility] [address] [place] [address] Minal العراقي MD [address] [place], [place] [phone] Hospital Follow-up Social History Tobacco Use Types Packs/Day Years [...] encounter Miscellaneous Notes * Telephone Encounter - Cynthia Vann - 04/26/2024 9:47 AM EDT Tc from pt requesting a HDF appt. Hospital: [facility] Date of admission: 04/23 Discharge date: 04/25 Diagnosed: Aspiration pneumonia Please contact daughter at [phone] documented in this encounter Plan of Treatment Not on file documented as of this encounter Visit Diagnoses Not on filedocumented in this encounter Additional Health Concerns Assessment Noted Time PHQ-9 Depression Total Score: 4 04/03/20 9:22 AM EDT documented as of this encounter Care Teams Engineering Librarian Relationship Specialty Start Date End Date Minal العراقي MD [address] [place] [id number] PCP - General Family Medicine 10/06/16 [facility] 10/08/24 01/01/25 [employer] 12/26/24 documented as of this encounter
--- OUTSIDE RECORDS SUMMARY | 2025-01-06 16:22 | XMS_ITS | Encounter Summary ---
Author Organization [employer] Address [address] [facility] 7t [place] [address] Care Team Providers Care Elevator Serviceman Name Role Phone Minal العراقي MD Primary Care Provider + Reason for Visit * Reason Comments Med Refill Encounter Details Date Type Department Care Team ([facility] st Contact Info) Description 11/14/2022 Refill [facility] [address] [place], [place] [phone] Minal العراقي MD [address] [place], [place] [phone] Social History Tobacco Use Types Packs/Day Years Used Date Smoking Tobacco: Former Cigarettes Smokeless Tobacco: Never Alcohol Use Standard Drinks/Week Comments Never 0 (1 standard drink = 0.6 oz pur e alcohol) Sex and Gender Information Value Date Recorded [...] suspected to have Coronavirus/COVID-19? No / Unsure 11/11/2022 11:43 AM EST documented as of this encounter Plan of Treatment Not on file documented as of this encounter Visit Diagnoses Not on filedocumented in this encounter Care Teams Elevator Serviceman Relationship Specialty Start Date End Date Minal العراقي MD [address] [place], [place] [phone] PCP - General Family Medicine 10/06/16 [facility] 10/08/24 01/01/25 [employer] 12/26/24 documented as of this encounter
--- OUTSIDE RECORDS SUMMARY | 2025-01-06 16:22 | XMS_ITS | Encounter Summary ---
Author Organization [employer] Address [address] [facility] 7t [place] [address] Care Team Providers Care Metal Smelter Name Role Phone Minal العراقي MD Primary Care Provider + Reason for Visit * Reason Comments Med Refill Encounter Details Date Type Department Care Team (Late st Contact Info) Description 02/02/2024 Refill [facility]INE [address] [place], [place] [phone] Minal العراقي MD [address] [place], [place] [phone] B12 deficiency Social History Tobacco Use Types Packs/Day Years [...] Date Recorded Patient Health Questionnaire-2 Score 0 01/05/2024 Sex and Gender Information Value Date Recorded Sex Assigned at Male 08/29/2022 10:29 AM EDT Legal Sex Male 10:29 AM EDT Gender Identity Male 08/29/2022 10:29 AM EDT Sexual Orientation Straight 08/29/2022 10 :29 AM EDT documented as of this encounter Plan of Treatment Not on file documented as of this encounter Visit Diagnoses Diagnosis B12 deficiency documented in this encounter Care Teams Metal Smelter Relationship Specialty Start Date End Date Minal العراقي MD [address] [place] [phone] PCP - General Family Medicine 10/06/16 [facility] 10/08/24 01/01/25 [employer] 12/26/24 documented as of this encounter
--- OUTSIDE RECORDS SUMMARY | 2025-01-06 16:22 | XMS_ITS | Encounter Summary ---
Author Organization [employer] Address [address] [facility] [address] 7t [place] [address] Care Team Providers Care Rodbuster Name Role Phone Minal العراقي MD Primary Care Provider + Reason for Visit * Reason Comments Med Refill Encounter Details Date Type Department Care Team ([facility] st Contact Info) Description 08/23/2023 Refill [facility] [address] [place] [address] Mauricio Jonas FNP Oral candidiasis Social History Tobacco Use Types Packs/Day Years [...] as of this encounter Visit Diagnoses Diagnosis Oral candidiasis Candidiasis of mouth documented in this encounter Care Teams Rodbuster Relationship Specialty Start Date End Date Minal العراقي MD [address] [place] [phone] PCP - General Family Medicine 10/06/16 [facility] 10/08/24 01/01/25 [employer] 12/26/24 documented as of this encounter
--- OUTSIDE RECORDS SUMMARY | 2025-01-06 16:22 | XMS_ITS | Encounter Summary ---
Author Organization [employer] Address [address] [facility] 7t [place] [address] Care Team Providers Care Product Management Analyst Name Role Phone Minal العراقي MD Primary Care Provider + Reason for Visit * Reason Onset Date Comments triage 02/01/2023 Encounter Details Date Type Department Care Team ([facility] st Contact Info) Description 02/01/2023 Telephone [facility] [address] [place], [place] [phone] Minal العراقي MD [address] [place], [place] [phone] triage Social History Tobacco Use Types Packs/Day Years [...] encounter Miscellaneous Notes * Telephone Encounter - Valentina Jalloh RN - 02/01/2023 10:25 AM EDT Triage call Pt daughter CINDY Kenney, calls to report Pt having mouth symptoms again. Pt was seen in [facility] 01/04 with the same symptoms as today indicating oral candidiasis. Pt was started on mycelex troches and after 10 days was clear . Pt daughter calling today to report symptoms have come back, white patches remain in mouth, gums and inside cheeks. Advised Pt daughter to bring Pt to [facility] today. Daughter reports that Pt is 87 yo and it is very hard to go to [facility] and to wait. Power Electronics Engineer contacted nurse Curtis in [facility] and requested Dr. Chao, who saw Pt in [facility] before could give another prescription for this dx. Dr. Chao requested a tele visit at 1120Am today . Daughter agreed and will be available for call at 1120AM. Protocol Used: Mouth Symptoms (Adult) Protocol-Based Disposition: See in Office or Video Visit within 3 Days Video visit offered and caller accepted Positive Triage Question: * White patches that stick to tongue or inner cheek, which can be wiped off * All higher-acuity triage questions were negative Care Advice Discussed: * Reasons To Call Back - You become worse * Telephone Encounter - Luis Carlos Abel - 02/01/2023 9:03 AM EDT Symptom: Mouth Pain - Not From Injury Outcome: Schedule an urgent appointment (within 4 hours) or talk to a nurse or provider soon Reason: Trouble drinking The caller accepted this outcome Please contact daughter at [phone] Kazakh Speaker documented in this encounter Plan of Treatment Not on file documented as of this encounter Visit Diagnoses Not on filedocumented in this encounter Care Teams Product Management Analyst Relationship Specialty Start Date End Date Minal العراقي MD [address] [place] [id number] PCP - General Family Medicine 10/06/16 [facility] 10/08/24 01/01/25 [employer] 12/26/24 documented as of this encounter
--- OUTSIDE RECORDS SUMMARY | 2025-01-06 16:22 | XMS_ITS | Encounter Summary ---
Author Organization [employer] Address [address] [facility] 7t [place] [address] Care Team Providers Care Speeder Hand Name Role Phone Minal العراقي MD Primary Care Provider + Encounter Details Date Type Department Care Team (Late st Contact Info) Description 06/01/2023 Orders Only [facility] MEDICINE [address] [place], [place] [phone] Minal العراقي MD 230 [place], [place] [phone] B12 deficiency (Primary Dx) Social History Tobacco Use Types Packs/Day Years [...] suspected to have Coronavirus/COVID-19? No / Unsure 05/04/2023 10:33 AM EDT documented as of this encounter Plan of Treatment Not on file documented as of this encounter Visit Diagnoses Diagnosis B12 deficiency- Primary documented in this encounter Care Teams Speeder Hand Relationship Specialty Start Date End Date Minal العراقي MD [address] [place], [place] [phone] PCP - General Family Medicine 10/06/16 [facility] 10/08/24 01/01/25 [employer] 12/26/24 documented as of this encounter
--- OUTSIDE RECORDS SUMMARY | 2025-01-06 16:22 | XMS_ITS | Encounter Summary ---
Author Organization [employer] Address [address] [facility] 7t [place] [address] Care Team Providers Care Store Grocery Merchandiser Name Role Phone Minal العراقي MD Primary Care Provider + Reason for Visit * Reason Onset Date Comments Appointment Request 12/26/2024 Encounter Details Date Type Department Care Team ([facility] st Contact Info) Description 12/26/2024 Telephone [facility]INE [address] [place] [address] Minal العراقي MD 230 [place], [place] [phone] Appointment Request Social History Tobacco Use Types [...] Telephone Encounter - Nidia Joiner MA - 12/26/2024 3:20 PM EST Tc to pt to r/s appt with PCP on 01/06/25 as Provider won't be in that afternoon. Pt's daughter stated she needs appt to be within 4 weeks. Will contact Provider. documented in this encounter Plan of Treatment Not on file documented as of this encounter Visit Diagnoses Not on filedocumented in this encounter Additional Health Concerns Assessment Noted Time PHQ-9 Depression Total Score: 4 04/03/20 9:22 AM EDT documented as of this encounter Care Teams Store Grocery Merchandiser Relationship Specialty Start Date End Date Minal العراقي MD [address] [place] [id number] PCP - General Family Medicine 10/06/16 [facility] 10/08/24 01/01/25 [employer] 12/26/24 documented as of this encounter
--- OUTSIDE RECORDS SUMMARY | 2025-01-06 16:22 | XMS_ITS | Encounter Summary ---
Author Organization [employer] Address [address] [facility] 7t [place] [address] Care Team Providers Care Brass Roller Name Role Phone Minal العراقي MD Primary Care Provider + Encounter Details Date Type Department Care Team (Late st Contact Info) Description 04/13/2023 Orders Only [facility] MEDICINE 230 [place], [place] [phone] Minal العراقي MD [address] [place], [place] [phone] Social History Tobacco Use Types Packs/Day Years [...] on filedocumented in this encounter Care Teams Brass Roller Relationship Specialty Start Date End Date Minal العراقي MD 230 [place], [place] [phone] PCP - General Family Medicine 10/06/16 [facility] 10/08/24 01/01/25 [employer] 12/26/24 documented as of this encounter
--- OUTSIDE RECORDS SUMMARY | 2025-01-06 16:22 | XMS_ITS | Encounter Summary ---
Author Organization [employer] Address [address] [facility] 7t [place] [address] Care Team Providers Care Operating Systems Programmer Name Role Phone Minal العراقي MD Primary Care Provider + Reason for Visit * Reason Comments Med Refill Encounter Details Date Type Department Care Team (Late st Contact Info) Description 02/23/2024 Refill [facility] MED[facility]INE 230 [place], [place] [phone] Minal العراقي MD 230 [place], [place] [phone] Acute left lower quadrant pain; Atherosclerosis of [place] coronary artery of [place] heart without angina pectoris Social History Tobacco Use Types Packs/Day Years [...] Diagnoses Diagnosis Acute left lower quadrant pain Atherosclerosis of [place] coronary artery of [place] heart without angina pectoris documented in this encounter Care Teams Operating Systems Programmer Relationship Specialty Start Date End Date Minal العراقي MD [address] [place] [phone] PCP - General Family Medicine 10/06/16 [facility] 10/08/24 01/01/25 [employer] 12/26/24 documented as of this encounter
--- OUTSIDE RECORDS SUMMARY | 2025-01-06 16:22 | XMS_ITS | Clinical Summary ---
Author Organization [employer] Address [address] [facility] [address] [place] [address] Care Team Providers Care Quahogger Name Role Phone Minal العراقي MD Primary Care Provider + Allergies Active Allergy Reactions Criticality Noted Date Comments Donepezil Diarrhea 11/11/2022 Lisinopril Swelling 11/11/2022 Medications acetaminophen (Tylenol) 500 MG tablet take 1 tablet by oral route every6 -8 hours as needed not to exceed 4 tablets per 24hrs 017 Active pantoprazole (ProtoNix) 20 MG EC tablet Take 20 mg by mouth. 020 Active Nebulizers (LiftoSpire Elegance Nebulizer) miscIndications :COPD with acute exacerbation (CMS/HCC) USE QID PRN SOB/COUGH WITH NEBULIZER MACHINE 1 each 3 023 Active levETIRAcetam (Keppra) 750 MG tablet Take 1 tablet by mouth 2 times daily. 022 Active albuterol 108 (90 Base) MCG/ACT inhalerIndicati ons:Pulmonary emphysema, unspecified emphysema type (CMS/HCC) TOME DOS INHALACIONES POR VIA ORAL CADA CUATRO A SEIS HORAS CUANDO SEA NECESARIO 8.5 g 1 023 Active D3 Super Strength 50 MCG (1999 UT) capsuleIndicati ons:Stage 3 chronic kidney disease, unspecified whether stage 3a or 3b CKD (CMS/HCC) TOME KEI CAPSULA TODOS LOS GALDAMEZ 90 capsule 2 023 Active cyanocobalamin (Vitamin B-12) 1000 MCG/ML injectionIndica tions:B12 deficiency INJECT 1 ML BY INTRAMUSCULAR ROUTE MONTHLY 9 mL 1 024 Active Diclofenac Sodium 1 % gelIndications: Acute pain of left shoulder APPLY 2 GRAMS TOPICALLY IF NEEDED IN THE MORNING AND EVENING 100 g Active Fluticasone-Ume clidin-Vilant (Trelegy Ellipta) 200-62.5-25 MCG/ACT aerosol powderIndicatio ns:COPD with acute exacerbation (CMS/HCC) Inhale 1 puff Once per day. 1 each 024 2024 Active albuterol (2.5 MG/3ML) 0.083% nebulizer solutionIndicat ions:COPD with acute exacerbation (CMS/HCC) Take 3 mL (2.5 mg) by nebulization every 6 (six) hours if needed for wheezing. 75 mL 11 024 2024 Active FREESTYLE LITE test stripIndication s:Type 2 diabetes mellitus without complication, without long-term current use of insulin ([facility]) Use to test blood sugar 1x times daily 100 each 12 024 2024 Active Lancets misc Use to test blood sugar 1x times daily 100 each 024 Active Blood Glucose Monitoring Suppl (FreeStyle [place] Lite) w/Device kit Use to test blood sugar 1x times daily 1 kit Active Alcohol Swabs (B-D SINGLE USE SWABS REGULAR) pads USE TO TEST BLOOD SUGAR 1X TIMES DAILY 100 each 11 024 Active metoprolol tartrate (Lopressor) 25 MG tabletIndicatio ns:Atherosclero sis of [place] coronary artery of [place] heart without angina pectoris TAKE 1/2 TABLET POR VIA ORAL DOS VECES AL ZULEMA 90 tablet 3 024 Active QUEtiapine (SEROquel) 25 MG tablet TOME DOS TABLETAS POR VIA ORAL TODOS [place]ALDAME[place] 180 tablet 1 024 Active docusate sodium (Colace) 100 MG capsuleIndicati ons:Acute left lower quadrant pain TAKE 1 CAPSULE BY MOUTH TWICE A DAY 180 capsule 1 024 Active simvastatin (Zocor) 40 MG tabletIndicatio ns:Atherosclero sis of [place] coronary artery of [place] heart without angina pectoris TAKE 1 TABLET BY MOUTH AT BEDTIME 90 tablet 1 025 Active Melatonin 5 MG tablet dispersible Take 1 tablet (5 mg) by mouth Once daily. 30 tablet 11 025 2025 Active traZODone (Desyrel) 50 MG tablet Take 1 tablet (50 mg) by mouth at bedtime. 30 tablet 11 Active carBAMazepine (TEGretol) 100 MG chewable tablet Chew 1 tablet (100 mg) 2 times daily. 60 tablet 3 Active folic acid (Folvite) 1 MG tablet Take 1 tablet (1 mg) by mouth Once per day. 30 tablet 11 025 2025 Active gabapentin (Neurontin) 300 MG capsule Take 1 capsule (300 mg) by mouth 2 times daily. 60 capsule 3 025 2025 Active sulfamethoxazol e-trimethoprim (Bactrim DS) 800-160 MG tablet Take 1 tablet by mouth 2 times daily for 7 days. 14 tablet 025 2024 Active carBAMazepine (TEGretol) 100 MG chewable tablet TAKE 1/2 TABLET BY MOUTH TWICE A DAY. IF PAIN RECURRS, INCREASE TO 1 TABLET TWICE A DAY 022 2024 Discontinued(R eorder (will not trigger notification to Pharmacy)) polyethylene glycol, PEG, 3350 (GaviLAX) 17 GM/SCOOP powder Take 17 g by mouth if needed each day (constipation). 510 g 11 024 2024 gabapentin (Neurontin) 300 MG capsule Take 1 capsule (300 mg) by mouth at bedtime. 90 capsule 1 025 2024 Discontinued(R eorder (will not trigger notification to Pharmacy)) Hospital, Clinic, or Other Facility Administered Medication Ordered Dose Route Frequency Start Date End Date Status cyanocobalamin (Vitamin B-12) injection 1,000 mcgIndications:B12 deficiency 1000 mcg IM Every 30 days 06/13/2024 06/08/2025 Active Active Problems Problem Noted Date Diagnosed Date Moderate vascular dementia with agitation 2024 Assessment & Plan (01/06/2025 1:40 PM EDT): Rule out UTI, Anne Marie will bring [place] to Lab for UA, after results will treat accordingly. Advised increased hydration and go to WIC or ED PRN if worsening mental status or fever. Continue Gabapentin 300 mg BID and Carbamazepine for behavioral symptoms. Continue B12 monthly injection. FU with Neurology. Discussed with patient regarding future placement options at SNF and will have our director of casework department reach out to them. Continue with home services with PSA and VNA. Altered mental status 01/01/2025 Overweight 12/20/2024 Assessment & Plan (12/20/2024 1:12 PM EST): Discussed re weight reduction options including exercise, life style modifications, diet. Recommended to decrease soda and sugary beverage consumption, increase protein intake with meals (at least 1 portion of protein with each meal) to assist with satiety, increase dietary fiber Cognitive disorder 11/19/2024 Assessment & Plan (11/19/2024 3:07 PM EST): Patient has known microvascular neurological disease but he's been more symptomatic sp falls/Subdural hematomas + frequent COPD exacerbations. It could also be exacerbated by MDD since his and he had to move in with his daughter. We'll restart B12 inj (1+ mo off inj) today and continue by VNA monthly Decrease Gabapentin as above Continue Wellbutrin + Kepra + Seroquel for now, he will fu with Neurology next month. Continue PT/OT at home and we'll request an evaluation to see if he can be independent for few hours or with some level of assistance at [facility] program without increasing other health risks. Dysphasia 11/19/2024 Assessment & Plan (11/19/2024 3:09 PM EST): Most likely related to [employer] disease, he had a recent fall at [facility] program, he will continue OT, may need speech therapy. Increase social interaction, will evaluate possibility to go back to [facility] program without major increase on risk of falls. Type 2 diabetes mellitus wit hout complication, without long-term current use of insulin 07/24/2024 Assessment & Plan (12/20/2024 1:11 PM EST): Controlled, fu at next appt Assessment & Plan (11/19/2024 12:51 PM EST): Controlled. A1c is at goal. Hyperglycemic peaks most likely related to acute infection/stress and steroids. Continue dietary management. Counseled re more frequent low calorie/carb meals. Encouraged physical activity as tolerated. FU in 3 months. Assessment & Plan (07/24/2024 3:54 PM EDT): New onset, controlled, see IFG plan At high risk for aspiration 05/13/2024 Assessment & Plan (05/13/2024 11:10 AM EDT): - had recent aspiration pneumonia, already treated - order barium swallow and f/u with me with results - advised to continue pureed and chopped meals Supplemental oxygen dependent 04/19/2024 Assessment & Plan (01/06/2025 1:43 PM EDT): Patient has advanced COPD with overnight Oxygen needs. Advised Anne Marie to continue 02 supply with new tubing as needed. She will monitor O2 (O2 saturation meter at home). Continue Trelegy and Albuterol PRN. Assessment & Plan (11/19/2024 12:53 PM EST): To be used over night only, FU with Pulmonology. Assessment & Plan (07/19/2024 1:38 PM EDT): He is doing well, he is using O2 only at night. Continue on Trelegy + Albuterol prn and follow up closely with pulmonology. He will bring information regarding recent immunizations, advised to have last Covid booster and RSV. Assessment & Plan (05/13/2024 10:55 AM EDT): - continue 1-2 liters on ambulation and overnight - f/u with pulmonology Assessment & Plan (05/11/2024 12:34 PM EDT): Patient didn't bring O2 tank today, feels well. I d/w him and daughter the importance of ALWAYS bring portable O2 tank, use 3- 4li NC for ambulation Continue use at home and overnight 1-2 li O2 NC provided today at visit while doing the evaluation, patient discharged home with daughter and indications for O2 as above, no other acute s/s COPD exacerbation. They will call back prn if he develops any worsening dyspnea, cough, fever. Assessment & Plan (04/19/2024 3:48 PM EDT): Use 2-3 li NC as needed during the day time + 1-2 li NC overnight Fu with pulmonology Hyperkalemia 04/19/2024 Assessment & Plan (05/13/2024 10:57 AM EDT): - rechecked K today, will prescribe Lokelma Assessment & Plan (04/19/2024 3:49 PM EDT): Mild , recently but hasn't taken Kayexalate. 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 He needs assistance in most of his ADLs. Given that his daughter who is primary loom winder tender care has been progressively sick this past year, I asked them to [facility] regarding options for [facility]-term placement, will discuss with insurance what their options are. At this time he is safe at home and will continue with home care and VNA for medication administration (b12 inj + multiple PO meds), pharmacological education Healthcare maintenance 04/07/2024 Overview (04/07/2024): Colonoscopy: 02/20/18 (possibly during hospital admission), request records Last PE: 04/03/24 Assessment & Plan (04/07/2024 7:33 PM EDT): Per current records: eligible for RSV, Shingles, and COVID vaccine. Daughter believes may have received some of these vaccines through [facility]. Will bring in documentation of previous vaccines to HIM. Diverticulitis of large inte anupam with perforation without abscess or bleeding 11/17/2023 Assessment & Plan (11/17/2023 2:02 PM EST): Resolved, sp abs Avoid constipation, recommended prune juice, increase water intake. Continue miralax and colace dialy Stress incontinence of urine 11/17/2023 Assessment & Plan (11/17/2023 2:03 PM EST): Use pull ups, needs prostate exam, will address at next appt. Use bedside commode. Recurrent major depressive disorder, in partial remission 11/17/2023 Assessment & Plan (01/05/2024 2:03 PM EST): Doing well on Wellbutrin SR 200mg/d only, no change in med dose Advised to apply for [facility] program, he agreed with POC. Assessment & Plan (11/17/2023 2:08 PM EST): Currently more active, has more MS changes likely due to recent acute condition, change on routine and loss of , all happening over the past year. Increase Wellbutrin to 200 mg bid and fu in 6w , [facility] If [facility] changes are made. Counseled family re lowering seizure threshold. Will refer to [facility] to see if activity levels Is increased. Oral leukoplakia 10/03/2023 Assessment & Plan (10/03/2023 10:28 AM EST): R/o candidiasis, will treat w/ Clotrimazole x 10 days. If not resolved he needs to FU w/ dentist to r/o malignancy Right hip pain 04/25/2023 Assessment & Plan (07/18/2023 1:24 PM EDT): Stable, pt has a recent fall getting up from bed Continue use of cane Discuss risk of falls with Daughter Needs some assistance with ADLs, he's living with his daughter after his Assessment & Plan (04/25/2023 11:00 AM EDT): Most likely related to OA exacerbated after fall last month FU with PT at [facility] system Oral candidiasis 03/15/2023 Assessment & Plan (07/06/2023 6:22 PM EDT): pt is edentulous , noted mild generalized erythema in gingiva specially in upper gingiva,also hard palate two small lesions and small possible traumatic ulcer in his right upper gingiva , noted mild not scraping white tongue -possible lesions are from trelegy use predisposing him for candidal infection but not able to stop given reports not well controlled COPD -vs lesions from dentures causing dentures stomatitis and ulcer from trauma with food -will try w nystatin liq e 6 hours for next 10 days -if no improvement and still concern for fungal infection may need to consider fluconazole for 7 days -but with cautions due to risk of QTC prolongation -with carbamazepine and seroquel -pt has apt w PCP schedule already for 2 weeks Assessment & Plan (04/25/2023 10:59 AM EDT): resolved with oral wash after using inhalers Assessment & Plan (03/15/2023 12:58 PM EDT): seems to be recurrent due to use of inhaled steroids recommended mouth wash BID after steroid inhaler treat with nystatin lozenges 4 times per day x 10 days at least Acute pain of left shoulder 03/15/2023 Assessment & Plan (03/15/2023 12:59 PM EDT): r/o fracture s/p fall order xray of the left shoulder use tylenol BID + diclofenac cream PRN I gave him a sling for immobilization Grief 03/15/2023 Assessment & Plan (03/15/2023 1:03 PM EDT): recently , currently living with his daughter. Pt feels safe at home, FU PRN B12 deficiency 03/15/2023 Assessment & Plan (12/20/2024 10:23 AM EST): He is due for injection this month, due to difficulty leaving the home well as the VNA to take over B12 supplementation. Assessment & Plan (05/13/2024 10:56 AM EDT): - pt having B12 injection today and every 2 months - due for B12 levels next year Assessment & Plan (11/17/2023 2:02 PM EST): b12 inj today Check b12 levels with next set of labs Assessment & Plan (04/25/2023 10:58 AM EDT): doing well on current supplementation continue b12 monthly until January 2024 and recheck levels Assessment & Plan (03/15/2023 12:56 PM EDT): obtain B12 levels and replace as needed Long toenail 03/15/2023 Assessment & Plan (03/15/2023 12:56 PM EDT): refer to podiatry Lung nodule seen on imaging study 02/14/2023 Overview (02/14/2023): 0.8 cm groundglass appearance nodule in the R upper lobe of the lungs. Recommended followup CT in 6-12 months Assessment & Plan (04/07/2024 7:39 PM EDT): Reports upcoming appt scheduled with Pulm for repeat CT scan Assessment & Plan (03/15/2024 1:32 PM EDT): Pt due for CT scan this m, will call pulmonology to check on appointment date Assessment & Plan (01/05/2024 11:23 AM EST): He has several lung nodule since 2018, will obtain most recent CT scan reportedly last month Pt to fu with manager film Assessment & Plan (07/18/2023 1:21 PM EDT): FU Ct scan Sep 2023 I gave pulmonary specialization to his daughter to make an sandy with me. Assessment & Plan (04/25/2023 10:59 AM EDT): CT scan due on 06/2023 recommended to call pulmonlogy and schedule an appointment with them if needed pt is a nonsmoker Assessment & Plan (03/15/2023 1:01 PM EDT): Seems to stable with recent CT scan fu with manager film Diverticulosis of colon 02/14/2023 Assessment & Plan (01/05/2024 11:25 AM EST): No recent exacerbations, continue miralax PRN I advised pt and daughter that he could start gong to an adult day program, he will fu with CM/forms department Decrease in appetite 11/22/2022 Idiopathic osteoarthritis 11/22/2022 Increased frequency of urination 11/22/2022 Assessment & Plan (11/17/2023 2:00 PM EST): UA in recent htalization was normal, patient could have BPH, will fu at next appt. He should have bedside comode, Anne Marie Will put it next to the bed. Use pull ups specially at night Tinea pedis 11/22/2022 COPD with emphysema 11/13/2022 Assessment & Plan (12/20/2024 9:35 AM EST): He has not had any recent exacerbations since last year hospitalization. He received RSV immunizationx on 12/12/2024 and COVID booster on 10/27/2023 Continue Trelegy and follow-up with pulmonology Continue overnight O2. Advised to use albuterol inhaler 3 times daily for the next 3 days then as needed, reconsult as needed worsening shortness of breath, change in color of sputum or respiratory distress. Assessment & Plan (11/19/2024 2:57 PM EST): Had recent exacerbation due to RSV + Covid, now improving. Continue Trelegy and FU with Pulmonology. Continue O2 supplementation over night. I will lower gabapentin (rx for pain) to at bedtime only due to potential risk of increased sedation and resp suppression. Assessment & Plan (05/11/2024 12:41 PM EDT): On trelegy inh + albuterol prn + supplemental O2 FU with neurology and re consult prn sxs. Non smoker. Assessment & Plan (04/19/2024 3:48 PM EDT): Advised to use albuterol q6h x 3d then prn. Continue Trelegy Advised to use O2 up to 3 li NC only on a prn basis. Use 1-2li NC overnight and fu with pulmonology. Assessment & Plan (04/07/2024 7:38 PM EDT): Advanced, O2 dependent Continue Trelegy + albuterol PRN 3L O2 during the day, 2L at night Following with [facility] Assessment & Plan (01/05/2024 11:29 AM EST): Advanced, he's O2 dependent Continue Trelegy + albuterol PRN and overnight O2 Counseled regarding RSV vax at earliest convenience, [facility], reportedly had a vaccination recently (?Covid vax) Assessment & Plan (11/17/2023 2:03 PM EST): Continue Trelegy and O2 1Li NC , can increase up to 2li prn SOB Fu with pulmonology Assessment & Plan (10/03/2023 10:27 AM EST): Continue Trelegy BID + Albuterol PRN, will use both the morning of the surgery FU w/ pulmonology Assessment & Plan (03/15/2023 1:02 PM EDT): No recent exacerbations since episode of Covid Continue trelegy and recommedned oral mouth wash after each application. Use albuterol PRN SOB or cough and FU with pulmonlogist Assessment & Plan (11/13/2022 8:13 PM EST): He seems to have developed bronchitis sp URI (Influenza?). Start Z-pack + Albuterol nebs at home *Rx for mouth piece). Order CXR to ro pneumonia. Proair inh x 4 today. Fu in 1m or earlier prn sxs. I will call back with results of CXR Continue Trelegy Mixed hyperlipidemia 11/13/2022 Assessment & Plan (11/13/2022 8:10 PM EST): It could be related to IFG. On simvastatin only. No new meds today, will recheck IFG in 1-2m after acute URI is resolved and decide POC Drug-induced constipation 11/13/2022 Assessment & Plan (04/07/2024 7:29 PM EDT): Well controlled with Miralax and Colace Encouraged lifestyle interventions including increased PO water intake, ambulation after meals. Assessment & Plan (11/13/2022 8:08 PM EST): Start colace. Encouraged increased PO water intake, ambulation after meals. IFG (impaired fasting glucose) 11/13/2022 Assessment & Plan (07/19/2024 1:39 PM EDT): New onset Diabetes. I have discussed with patient regarding increasing physicial activity and decrease calorie intake I'll check FBS with next set of labs. To check RBS at next visit A1c is at goal, he will be checking fingerstick daily and follow up with me in 6 weeks. Assessment & Plan (03/15/2024 1:33 PM EDT): Counseled re more frequent low calorie/carb meals. Check fingersticks at home Encouraged physical activity as tolerated. Assessment & Plan (04/25/2023 11:08 AM EDT): I have discussed with patient regarding increasing physicial activity and decrease calorie intake I'll check FBS with next set of labs. To check RBS at next visit. FU with me next visit Assessment & Plan (11/13/2022 8:10 PM EST): Counseled re more frequent low calorie/carb meals. Encouraged physical activity as tolerated. FU in 1-2 months after acute URI is completely resolved. Allergic conjunctivitis 11/13/2022 Chronic post-traumatic headache 11/13/2022 Neuropathy 11/13/2022 Assessment & Plan (11/19/2024 2:57 PM EST): On gabapentin tid, pain is controlled. I will decrease gabapentin to at bedtime only and observe recurrence of pain / or not FU in 1-2m Assessment & Plan (04/19/2024 3:43 PM EDT): Improving on Gabapentin 300mg tid, no change in dose. FU with Neurology to see if Keppra and Depakote dose can be adjusted/minimize polypharmacy Assessment & Plan (03/15/2024 1:32 PM EDT): LE. Increase gabapentin to 300mg TID, daughter will hold PRN dizziness or sedation Continue b12 supplementation Fu with urology Assessment & Plan (11/17/2023 2:05 PM EST): Mostly on left foot. Continue b12 inj today, cehck levels at next visit. Adjust carbamazepine per neurology. Assessment & Plan (04/25/2023 11:02 AM EDT): secondary to B12 deficiency, improving after supplementation continue b12 injection monthly x 1 year and recheck B12 levels on January 2024 Assessment & Plan (03/15/2023 12:59 PM EDT): r/o B12 deficiency vs lumbar radiculopathy will obtain labs from [facility] or order B12 levels May need PT Seasonal allergic rhinitis 11/13/2022 Seizure disorder 11/13/2022 Assessment & Plan (12/20/2024 9:34 AM EST): He has not had any new seizures in approximately 6 months. He will continue on carbamazepine and Lamictal same dose, I will lower again gabapentin to 300 mg nightly and follow-up in 4 weeks. I told her daughter and patient to watch for symptoms of neuropathy as well. They should follow-up with Dr. Valenzuela at [facility] neurolog[facility], her daughter will check on the date of the next appointment. Patient needs to continue with home services, avoid staying by himself due to multiple chronic conditions, risk of seizures and recurrent falls with head concussion and internal bleeding. Will check with care management regarding options for patient's placement in a long-term care facility I discussed with patient's daughter,. Assessment & Plan (11/19/2024 12:52 PM EST): Secondary to intracranial bleeding, controlled on medications. Continue Keppra. Assessment & Plan (05/13/2024 11:08 AM EDT): - controlled - continue Keppra + Depakote - he is also on Gabapentin BID for neuropathy - f/u with neurology on 05/29 Assessment & Plan (04/07/2024 7:25 PM EDT): No recent seizures - none in last 2 years Following with Neurology - Dr. Valenzuela Continue Keppra + Carbamazepine Assessment & Plan (11/17/2023 2:04 PM EST): No recent seizures Continue Keppra + Carbamazepine Patient is also on gabapentin, her daughter will discuss with Neurology next month re dc med if needed. Assessment & Plan (04/25/2023 10:58 AM EDT): No recent seizures in more than 6 months. Seizures were probably triggered by subural hematoma continue carbamazipine for now, fu with nueurology once per year Stage 3 chronic kidney disease 11/13/2022 Assessment & Plan (11/24/2022 1:51 PM EST): BMP drawn by VNA, will FU next week. Subdural hematoma 11/13/2022 Assessment & Plan (05/11/2024 12:40 PM EDT): Resolving, has residual encephalomalacia. I d/w patient and daughter re implications on neurological functioning down the road, slowing cognition, altered mood and will treat accordingly. Will continue Keppra, gabapentin and carbamazepine for now and fu with Neurology. Will attempt to dc either carbamazepine or gabapentin to simplify med regimen possible. D/w daughter and patient the importance of fall prevention, ambulate with a walker, use of O2 at home, avoid rugs, wires in the house. FU with neurology, no worsening neurological s/s today. Assessment & Plan (04/19/2024 3:45 PM EDT): Recurrent falls, they seem to be reabsorbing, no signs of increase intracranial HTN/herniation I will fax CT scan to neurology to fu. I explained to patient and daughter that there's no need for surgical intervention at this time, memory issues and [place]ONA are probably related to it. ASA is contraindicated due to recurrent falls. Syncope 11/13/2022 Coronary atherosclerosis 03/22/2018 Assessment & Plan (04/07/2024 7:30 PM EDT): Hx stable angina, continues on metoprolol 12.5mg BID LDL goal is 70 Assessment & Plan (03/15/2023 1:01 PM EDT): He has stable angina and doing well on metoprolol 12.5mg BID LDL goal is 70 fu with me in 3 months Arthritis 10/06/2016 Benign essential hypertension 10/06/2016 Assessment & Plan (07/19/2024 1:39 PM EDT): Controlled. Compliant w/meds Continue Metoprolol 25 mg Counseled re low salt diet/increase moderate physical activity. Check home BP BIW and prn CP/CORONA/TRAN Non smoking patient. Assessment & Plan (04/07/2024 7:39 PM EDT): Well controlled Continue metoprolol 12.5 mg BID Assessment & Plan (07/18/2023 1:22 PM EDT): BP runs 140/80, controlled Continue metolipol 12.5 mg BID Assessment & Plan (04/25/2023 11:01 AM EDT): Controlled, BP is at goal. Continue metoprolol only Family to check BP once per week only Counseled re low salt diet/increase moderate physical activity. Check home BP BIW and prn CP/CORONA/TRAN Non smoking patient. 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 Continue PT at home Rx bath seat with support Dizziness 10/06/2016 Resolved Problems Problem Noted Date Diagnosed Date Resolved Date Preop examination 10/03/2023 04/07/2024 Assessment & Plan (10/03/2023 2:02 PM EST): 88 yo patient with multiple medical conditions here for preop evaluation. Most of her/his medical conditions are stable enough so that she/he can safely undergo planned procedure. Eligio is a MEDIUM risk patient due to extensive CV disease, hx CAD and CVA more than 2y ago, stable with no exertional angina or significant neurological deficits. He's undergoing an LOW risk procedure. The risk of CV complication according to RCRI is 10.1%. At this time HE IS ON OPTIMAL CONDITION for planned procedure. -Meds adjusted for the day of surgery as above. Will take Metoprolol and Trelegy inhaler in the morning of surgery, resume all regular meds AFTER the procedure. -MONITOR O2 SATURATION DURING SURGERY TO KEEP IT 90-94%, he tends to desaturate with prolonged decubitus only. -He will call back LD should he develops fever, cough, SOB, CP, UTI sxs or any other acute issue. Acute posttraumatic headache 03/14/2023 04/25/2023 COPD with acute exacerbation 11/24/2022 04/25/2023 Assessment & Plan (11/25/2022 2:35 PM EST): S/p pna, doing better. Continue albuterol and duonebs at home, will send a new prescription to pharmacy. Continue Trelegy and DC spiriva. Will FU in 1 month and order FU x-rays then. Pt reportedly had influenza IZ approximately 1 month ago. See previous note. Dyspnea 11/22/2022 04/25/2023 Paraparesis 11/22/2022 04/25/2023 Gastrointestinal hemorrhage 02/14/2018 04/25/2023 Encounters Date Type Department Care Team Description 01/06/2025 1:00 PM EDT Telemedicine [facility] [address] [place] [phone] Minal العراقي MD Moderate vascular dementia with agitation (CMS/HCC) (Primary Dx); Supplemental oxygen dependent 01/06/2025 Travel 01/03/2025 Telephone [facility] [address] [facility] [place] [address] Minal العراقي MD Care Coordination 01/03/2025 Orders Only [facility] [address] [facility] [place] [address] Minal العراقي MD 01/01/[address] [place] [address] Minal العراقي MD Care Coordination 12/28/2024 Refill [facility] [address] [facility] [place] [address] Minal العراقي MD Acute left lower quadrant pain 12/26/[address] [place] [address] Minal العراقي MD Appointment Request 12/20/2024 9:00 AM EST Office Visit [address] [place] [address] Minal العراقي MD Pulmonary emphysema, unspecified emphysema type (CMS/HCC) (Primary Dx); Seizure disorder (CMS/HCC); B12 deficiency; History of hemorrhagic cerebrovascular accident (CVA) with residual deficit; Type 2 diabetes mellitus without complication, without long-term current use of insulin (CMS/[facility]); Overweight; Dietary counseling; Exercise counseling 12/20/2024 Telephone [facility] [address] [place] [phone] Minal العراقي MD Care Coordination 12/20/2024 Travel 12/18/2024 Refill [facility] [address] [place] [address], [place] [address] Minal العراقي MD 12/17/2024 Telephone [facility] [address] [place] [phone] Minal العراقي MD Chart prep 12/03/2024 Telephone [facility] [address] [place] [address] Minal العراقي MD Durable Medical Equipment 11/28/2024 Telephone [facility] [address] [place] [address], [place] [address] Minal العراقي MD Call Back Request 11/22/2024 Telephone [facility] [place] [address] Minal العراقي MD telephone call 11/20/2024 Telephone [facility] [place] [place] [address] oYlie Martines, RN Care coordination 11/19/2024 10:45 AM EST Office Visit [facility] [place] [address] Minal العراقي MD Pulmonary emphysema, unspecified emphysema type (CMS/HCC) (Primary Dx); Seizure disorder (CMS/HCC); Cognitive disorder; Neuropathy; Type 2 diabetes mellitus without complication, without long-term current use of insulin (CMS/HCC); Supplemental oxygen dependent; Dysphasia; Recurrent major depressive disorder, in partial remission (CMS/HCC); Subdural hematoma (CMS/HCC); Stage 3 chronic kidney disease, unspecified whether stage 3a or 3b CKD (CMS/HCC) 11/19/2024 Travel 11/10/2024 Refill [facility] [place] [address] Minal العراقي MD Atherosclerosis of [place] coronary artery of [place] heart without angina pectoris 10/31/2024 Patient Outreach [facility] [place] [address] Minal العراقي MD Transition Of Care (Tcm) (HDF- scheduled and SDOH screening completed on 04/03/2024.) 10/31/2024 Telephone [facility] [place] [address] Minal العراقي MD Hospital Follow-up 10/25/2024 Telephone [facility] [place] [address] Minal العراقي MD Hospital Follow-up (Patient at [facility], daughter came with concerns re home care) 10/24/2024 Telephone [facility] [place] [address] Minal العراقي MD No Show 10/24/2024 Travel 10/22/2024 Telephone [address] [place] [address] Minal العراقي MD FYi 10/13/2024 Refill [facility] [address] [place] [address] Minal العراقي MD 10/08/[address] [phone] Minal العراقي MD VNA verbal orders 10/08/2024 Patient Outreach [address] [phone] Minal العراقي MD Transition Of Care (Tcm) (HDF- scheduled and SDOH screening completed on 04/03/2024) 10/08/[address] [phone] Minal العراقي MD Hospital Follow-up from Last 3 Months Immunizations Name Administration Dates Next Due Influenza High-dose Quadriva lent Preservative Free 07/18/2023 Influenza Quadrivalent Adjuvanted 10/12/2022 Influenza injectable quadriv alent preservative free 08/18/2020 Influenza, High Dose Seasona l, Preservative Free 07/23/2024,07/27/2018,08/09/2017 Influenza, IIV3, injectable 10/12/2022,1 ,07/27/2018,08/09 Moderna Covid-19 Vaccine 12+ 09/15/2021,02/01/20 21,01/01/2021 Pneumococcal Conjugate PCV 13 2016 Pneumococcal Polysaccharide PPSV23 10/06/2021 RSV Adjuvant 12/12/2024 Tdap 10/06/2021 Zoster, Recombinant 04/12/2022,01/11/2022 Zoster, live 2016 Social History Tobacco Use Types Packs/Day Years [...] Orientation Straight 08/29/2022 10 :29 AM EDT Last Filed Vital Signs Vital Sign Reading [...] Mass Index 27.83 12/20/2024 8:56 AM EST Plan of Treatment Health Maintenance Due Date Last Done Comments Eye Exam 01/25/1945 COVID-19 Vaccine ( season) 2024 10/27/2023, 03/02/2022, 09/15/2021, Additional history exists Alcohol/Substance Use Screening 04/03/2025 04/03/2024 Depression Screening 04/03/2025 04/03/2024, 04/03/20 Diabetes: Urine Protein Screening 04/03/2025 04/03/2024 Lipid Panel 04/03/2025 04/03/2024, 10/30, 12/07/2021, Additional history exists SDOH Screening 04/03/2025 04/03/2024 Diabetes: Foot Exam 04/19/2025 04/19/2024, 04/19/2024, 04/19/2024, Additional history exists Diabetes: Hemoglobin A1C 05/19/2025 025, 07/19/2024, 04/03/2024, Additional history exists Tobacco Screening 12/20/2025 12/20/2024 DTaP/Tdap/Td Vaccines (2 - Td or Tdap) 10/06/2031 10/06/2021 Pneumococcal Vaccine: 50+ Years Completed 10/06/2021, 2016 Zoster Vaccines Completed 04/12/2022, 12/28, 2016 Influenza Vaccine Completed 07/23/2024, , 10/12/2022, Additional history exists RSV Patients and Patients Aged 60 years or older Completed 12/12/2024 HIB Vaccines Aged Out No longer eligi ble based on patient's age to complete this topic HPV Vaccines Aged Out No longer eligi ble based on patient's age to complete this topic Hepatitis A Vaccines Aged Out No long er eligible based on patient's age to complete this topic Hepatitis B Vaccines Aged Out No long er eligible based on patient's age to complete this topic IPV Vaccines Aged Out No longer eligi ble based on patient's age to complete this topic Meningococcal Vaccine Aged Out No julio [place] eligible based on patient's age to complete this topic RSV under 20 months Aged Out No longe r eligible based on patient's age to complete this topic Rotavirus Vaccines Aged Out No longer eligible based on patient's age to complete this topic Procedures Procedure Name Priority Date/Time Associated Diagnosis Comments URINALYSIS, COMPLETE, WITH REFLEX TO CULTURE Routine 01/06/2025 2:21 PM EDT Altered mental status, unspecified altered mental status type XR CHEST 2 VIEWS Routine 01/02/2025 1:03 PM EST Altered mental status, unspecified altered mental status type Pulmonary emphysema, unspecified emphysema type (CMS/HCC) CARBAMAZEPINE, TOTAL Routine 01/02/2025 12:54 PM EST Seizure disorder (CMS/HCC) Cognitive disorder VITAMIN B12/FOLATE, SERUM PANEL Routine 01/02/2025 12:54 PM EST Moderate vascular dementia with agitation (CMS/HCC) TSH W/REFLEX TO FT4 Routine 01/02/2025 1 2:54 PM EST Altered mental status, unspecified altered mental status type COMPREHENSIVE METABOLIC PANEL Routine 01/02/2025 12:54 PM EST Altered mental status, unspecified altered mental status type Moderate vascular dementia with agitation (CMS/HCC) CBC WITH AUTO DIFFERENTIAL Routine 01/02/2025 12:54 PM EST Altered mental status, unspecified altered mental status type Pulmonary emphysema, unspecified emphysema type (CMS/HCC) POCT GLUCOSE Routine 12/20/2024 8:57 AM EST Type 2 diabetes mellitus without complication, without long-term current use of insulin (CMS/HCC) BASIC METABOLIC PANEL Routine 11/19/2024 12:13 PM EST Type 2 diabetes mellitus without complication, without long-term current use of insulin (CMS/HCC) POCT GLYCATED HEMOGLOBIN, TOTAL Routine 11/19/2024 11:08 AM EST Type 2 diabetes mellitus without complication, without long-term current use of insulin (CMS/HCC) POCT GLUCOSE Routine 11/19/2024 11:04 AM EST Type 2 diabetes mellitus without complication, without long-term current use of insulin (CMS/HCC) ALBUMIN, RANDOM URINE W/CREATININE Routine 04/03/2024 10:26 AM EDT Encounter for routine history and physical examination of adult LIPID PANEL, STANDARD Routine 04/03/2024 10:26 AM EDT Encounter for routine history and physical examination of adult from Last 3 Months or Most Recently Relevant to Health Maintenance Results * (ABNORMAL) Urinalysis, Complete, with Reflex to Culture (01/06/2025 2:21 PM EDT) Color Urine Yellow [facility] Appearance Urine Turbid [facility] PH 6.5 5.0 - 9.0 [facility] Glucose Urine UA Negative Negative mg/dL [facility] Urine Blood Large (3+)(A) Negative [facility] Specific [place] - Urine 1.020 1.005 - 1.025 [facility] Urine Protein 300 (3+)(A) Neg-Trace mg/dL [facility] Urine Ketones Negative Negative mg/dL [facility] Nitrite Urine Negative Negative [facility] Leukocyte Esterase Urine Large (3+)(A) Negative [facility] RBC Urine >20(A) 0 - 2 /HPF [facility] Urine WBC >50(A) 0 - 5 /HPF [facility] Urine Squamous Epithelial Cell 3-5 0 - 2 /HPF [facility] Urine Bacteria 4+ None Seen [facility] Hyaline Casts, Urine 3-5 0 - 2 /LPF [facility] Urine 01/06/2025 2:21 PM EDT 01/06/2025 3:58 PM EDT Narrative [facility] - 01/06/2025 4:08 PM EDT Urine, Clean Catch us Minal العراقي MD LAB URINE ORDERABLES Fin al Result [facility] [address] [place] [phone] * XR Chest 2 Views (01/02/2025 1:03 PM EST) Anatomical Region Laterality Modality Chest Radiographic Bev ging 01/02/2025 1:03 PM EST Narrative 01/02/2025 2:14 PM EST ? [facility] ?[address] ?[place] [address] ?XRay Report ? Signed ? Patient: Chuck Ayala,Joshua ?MR#: [id number] ?? [id number] ? : 1935 ?Acct:[id number] ? Age/Sex: 89 / M ?ADM Date: 01/02/25 ? Loc: HO.[facility]CL ? Attending Dr: Minal العراقي MD ? Ordering Physician: Minal العراقي MD ?? Date of Service: 01/02/25 ?? Procedure(s): XR chest 2V ?? Accession Number(s): [id number] ? cc: Minal العراقي MD ? EXAMINATION: ?? XR CHEST [...] ? Signed By: ?<Electronically signed by Fab S MD Melissa in OV> ?01/02/25 1411 ? DD/ 1303 ? TD/TT: 01/02/25 1318 ? Advertising Agency Manager: MSM ? Procedure Note Nuvia Gilmore - 01/02/2025 [facility] [address] [place] [address] XRay Report Signed Patient: Mohamud Montenegro#: M [id number] : 6Acct:[id number] Age/Sex: 89 / MADM Date: 01/02/25 Loc: HO[facility] Attending Dr: Minal العراقي MD Ordering Physician: Minal العراقي MD Date of Service: 01/02/25 Procedure(s): XR chest 2V Accession Number(s): [id number] cc: Minal العراقي MD EXAMINATION: XR CHEST CLINICAL INFORMATION: [...] 01/02/25 1411 DD/ 1303 TD/TT: 01/02/25 1318 Advertising Agency Manager: [facility] Minal العراقي MD IMG XR PROCEDURES Final Result * (ABNORMAL) Vitamin B12/Folate, Serum Panel (01/02/2025 12:54 PM EST) Vitamin B12 450 200 - 900 pg/mL [facility] Comment:NORMAL 200-900 PG/ML INDETERMINATE 160-199 PG/ML DEFICIENT < 160 PG/ML Folate 3.6(L) > or = 4.0 ng/mL [facility] Comment:Reference Values:> o r = 4.0 ng/mL< 4.0 ng/mL suggests folate deficiency Methotrexate, aminopterin and folinic acid(leucovorin) are chemotherapeutic agents whose molecularstructures are similar to folate; therefore, the Architectfolate assay cannot be used for patients using these drugs. Blood Venous blood specimen / Unknown 01/02/2025 12:54 PM EST 01/02/2025 4:19 PM EST Minal العراقي MD LAB BLOOD ORDERABLES Fin al Result Performing Organization Address City/[facility]/ZIP Co de Phone Number [facility] [address] [place] [phone] * TSH with Reflex to Free T4 (01/02/2025 12:54 PM EST) Pathologist [facility] TSH reflex Free T4 0.63 0.32 - 4.0 uIU/mL [facility] Blood 01/02/2025 12:5 4 PM EST 01/02/2025 4:19 PM EST Minal العراقي MD LAB BLOOD ORDERABLES Fin al Result Performing Organization Address [facility] Co de Phone Number [facility] [address] [place] [phone] * (ABNORMAL) CBC auto differential (01/02/2025 12:54 PM EST) White Blood Count 9.1 4.8 - 10.8 X10*3/uL [facility] Red Blood Count 4.22(L) 4.60 - 5.80 X10*6/uL [facility] Hemoglobin 12.6(L) 14.0 - 18.0 g/dl [facility] Hematocrit 39.7(L) 42.0 - 52.0 % [facility] Mean Corpuscular Volume 94.1 80.0 - 98.0 fL [facility] Mean Corpuscular Hemoglobin 29.9 27.0 - 33.0 pg [facility] Mean Corpuscular HGB Conc 31.7 31.0 - 36.0 g/dl [facility] Red Cell Distribution Width 12.6 11.0 - 16.0 % [facility] Platelet Count 238 160 - 400 X10*3/uL [facility] Mean Platelet Volume 10.5 9.4 - 12.4 fL [facility] Neutrophils Percent Auto 69.8 45 - 73 % [facility] Imm Gran Pct Auto 0.5(H) 0.0 - 0.4 % [facility] Lymphocytes Percent Auto 9.8(L) 20 - 40 % [facility] Monocytes Percent Auto 7.0 2 - 11 % [facility] Eosinophils Percent Auto 12.2(H) 0 - 4 % [facility] Basophils Percent Auto 0.7 0 - 2 % [facility] NRBC Pct Auto 0.0 0.0 - 0.2 /100WBC [facility] Neutrophils Absolute Auto 6.4 2.0 - 8.3 x10*3/uL [facility] Imm Gran Abs Auto 0.05(H) 0.00 - 0.03 X10*3/uL [facility] Lymphocytes Absolute Auto 0.9(L) 1.2 - 4.9 X10*3/uL [facility] Monocytes Absolute Auto 0.6 0.1 - 1.2 X10*3/uL [facility] Eosinophils Absolute Auto 1.1(H) 0.0 - 0.4 X10*3/uL [facility] Basophils Absolute Auto 0.1 0.0 - 0.2 X10*3/uL [facility] NRBC Abs Auto 0.000 0.0 - 0.012 X10*3/uL [facility] Blood Venous blood specimen / Unknown 01/02/2025 12:54 PM EST 01/02/2025 4:19 PM EST us Minal العراقي MD LAB BLOOD ORDERABLES Fin al Result [facility] [address] [place] [phone] * (ABNORMAL) Carbamazepine, Total (01/02/2025 12:54 PM EST) Carbamazepine Tegretol 4.9(L) 5.0 - 12.0 mcg/mL [facility] Blood Venous blood specimen / Unknown 01/02/2025 12:54 PM EST 01/02/2025 4:19 PM EST us Minal العراقي MD LAB BLOOD ORDERABLES Fin al Result [facility] [address] [place] [phone] * (ABNORMAL) Comprehensive Metabolic Panel (01/02/2025 12:54 PM EST) Pathologist [facility] Sodium 144 135 - 145 mmol/L [facility] Potassium 5.1 3.3 - 5.1 mmol/L [facility] Chloride 108 96 - 108 mmol/L [facility] Carbon Dioxide 27 22 - 29 mmol/L [facility] Anion Gap 14 12 - 20 [facility] Urea Nitrogen (BUN) 24(H) 9 - 16 mg/dL [facility] Creatinine, Serum 1.40 0.5 - 1.4 mg/dL [facility] Estimated Glomerular Filt Rate 48 [facility] Comment:Chronic Kidney Disea se: Estimated GFR < 60 mL/min/1.61n7Soacnq Kidney Disease: Estimated GFR < 15 mL/min/1.73m2 Glucose 154(H) 60 - 115 mg/dL [facility] Calcium 8.9 8.4 - 10.2 mg/dL [facility] Bilirubin, Total 0.3 0.0 - 1.0 mg/dL [facility] Aspartate Amino Transferase 16 5 - 37 U/L [facility] Alanine Aminotransferase 12 0 - 40 U/L [facility] Total Protein 6.7 6.5 - 8.0 g/dL [facility] Albumin Level 3.9 3.5 - 5.0 g/dL [facility] Alkaline Phosphatase 105 39 - 117 U/L [facility] Blood Venous blood specimen / Unknown 01/02/2025 12:54 PM EST 01/02/2025 4:19 PM EST Minal العراقي MD LAB BLOOD ORDERABLES Fin al Result [facility] [address] [place] [phone] * POCT Glucose (12/20/2024 8:57 AM EST) Only the most recent of2 resultswithin the time period is included. Glucose Blood, POC 139 60 - 200 mg/dL QC Media Lot # [id number] Lot# Expiration Date Blood Capillary blood specimen / Unknown 12/20/2024 8:57 AM EST Minal العراقي MD POINT OF CARE TEST ENTER /EDIT ORDERABLES Final Result * (ABNORMAL) Basic Metabolic Panel (11/19/2024 12:13 PM EST) Pathologist [facility] Sodium 141 135 - 145 mmol/L [facility] Potassium 5.1 3.3 - 5.1 mmol/L [facility] Comment:Slight Hemolysis.Int erpret result with caution. Chloride 108 96 - 108 mmol/L [facility] Carbon Dioxide 25 22 - 29 mmol/L [facility] Anion Gap 13 12 - 20 [facility] Urea Nitrogen (BUN) 19(H) 9 - 16 mg/dL [facility] Creatinine, Serum 1.14 0.5 - 1.4 mg/dL [facility] Estimated Glomerular Filt Rate >60 [facility] Comment:Chronic Kidney Disea se: Estimated GFR < 60 mL/min/1.61x8Wyxail Kidney Disease: Estimated GFR < 15 mL/min/1.73m2 Glucose 123(H) 60 - 115 mg/dL [facility] Calcium 9.1 8.4 - 10.2 mg/dL [facility] Blood Venous blood specimen / Unknown 11/19/2024 12:13 PM EST 11/19/2024 1:14 PM EST us Minal العراقي MD LAB BLOOD ORDERABLES Fin al Result [facility] [address] [place] [phone] * (ABNORMAL) POCT HGB A1C (11/19/2024 11:08 AM EST) Hemoglobin A1C 6.6(A) 4.0 - 6.0 % QC Media Lot # [id number] Lot# Expiration Date Blood 11/19/2024 11:0 8 AM EST Minal العراقي MD POINT OF CARE TEST ENTER /EDIT ORDERABLES Final Result * Albumin, Random Urine W/Creatinine (04/03/2024 10:26 AM EDT) Creatinine, Urine 154.34 mg/dL [facility] Microalbumin Urine 41.0 mg/L [facility] Microalbum Creatinine Ratio Ur 26.5 <30 ug/mg cr [facility] Comment:Albumin/Creatinine R atio Reference Ranges: Normal: < 30 ug/mg creatinine Microalbuminuria: 30 - 300 ug/mg creatinineClinical Albuminuria: > 300 ug/mg creatinine Urine 04/03/2024 10:2 6 AM EDT 04/03/2024 11:32 AM EDT us Carolyn MAXWELL LAB URINE ORDERABLES Final Res ult [facility] [address] [place] [phone] * (ABNORMAL) Lipid Panel, Standard (04/03/2024 10:26 AM EDT) Triglycerides 355(H) <150 mg/dL [facility] Comment:Desirable Triglyceri de: less than 150 mg/dLBorderline High Triglyceride 150-199 mg/dLHigh Triglyceride: 200-499 mg/dLVery High Triglyceride: greater than or equal to 5OO mg/dL Cholesterol 194 <200 mg/dL [facility] Comment:Desirable Cholestero l: less than 200 mg/dLBorderline High Cholesterol: 200-239 mg/dLHigh Cholesterol: greater than 239 mg/dL LDL Cholesterol Calculated 83 <100 mg/dL [facility] Comment:Desirable LDL: less than 100 mg/dLNear Optimal/Above Optimal LDL: 110- 129 mg/dLBorderline High LDL: 130-159 mg/dLHigh LDL: 160-189 mg/dLVery High LDL: greater than or equal to 190 mg/dL HDL Cholesterol 40(L) >40 mg/dL [facility] Comment:Desirable HDL: great er than 40 mg/dL Note: This HDL assay may give artificially low results in patients with liver disease. Blood Venous blood specimen / Unknown 04/03/2024 10:26 AM EDT 04/03/2024 11:41 AM EDT us Carolyn Mojica [employer] LAB BLOOD ORDERABLES Final Res ult [facility] [address] [place] [address] [phone] from Last 3 Months or Most Recently Relevant to Health Maintenance Insurance [facility] Care Teams Quahogger Relationship Specialty Start Date End Date Minal العراقي MD [address] [place] [phone] PCP - General Family Medicine 10/06/16 [employer]Mindful 12/26/24
--- OUTSIDE RECORDS SUMMARY | 2025-01-06 16:22 | XMS_ITS | Encounter Summary ---
Author Organization [employer] Address [address] [facility] [address] [place] [address] Care Team Providers Care Doughnut Glazier Name Role Phone Minal العراقي MD Primary Care Provider + Reason for Visit * Reason Onset Date Comments Hospital Follow-up 10/08/2024 Encounter Details Date Type Department Care Team ([facility] st Contact Info) Description 10/08/2024 Telephone [facility] MEDICINE [address] [place] [address] Minal العراقي MD [address] [place], [place] [phone] Hospital Follow-up Social History Tobacco Use Types [...] encounter Miscellaneous Notes * Telephone Encounter - Vera Epstein - 10/08/2024 9:51 AM EST Tc from pt requesting a HDF appt. Hospital: [facility] Date of admission: 09/30/24 Discharge date: 10/07/24 Diagnosed: Rsv and copd *Send message to [place] Clinical Care Coordinators documented in this encounter Plan of Treatment Not on file documented as of this encounter Visit Diagnoses Not on filedocumented in this encounter Additional Health Concerns Assessment Noted Time PHQ-9 Depression Total Score: 4 04/03/20 24 9:22 AM EDT documented as of this encounter Care Teams Doughnut Glazier Relationship Specialty Start Date End Date Minal العراقي MD [address] [place] [id number] PCP - General Family Medicine 10/06/16 [facility] 10/08/24 01/01/25 [facility] 12/26/24 documented as of this encounter
--- OUTSIDE RECORDS SUMMARY | 2025-01-06 16:22 | XMS_ITS | Encounter Summary ---
Author Organization [employer] Address [address] [place] [address] Care Team Providers Care Sec Reporting Consultant Name Role Phone Minal العراقي MD Primary Care Provider + Encounter Details Date Type Department Care Team (Late st Contact Info) Description 12/19/2023 Telephone [facility] [address] [place] [address] Buffy Becerra LPN Social History Tobacco Use Types Packs/Day Years [...] on filedocumented in this encounter Care Teams Sec Reporting Consultant Relationship Specialty Start Date End Date Minal العراقي MD [address] [place] [id number] PCP - General Family Medicine 10/06/16 [facility] 10/08/24 01/01/25 [email or web address] 12/26/24 documented as of this encounter
--- OUTSIDE RECORDS SUMMARY | 2025-01-06 16:22 | XMS_ITS | Encounter Summary ---
Author Organization [employer] Address [address] [facility] [address] [place] [address] Care Team Providers Care Roaster Supervisor Name Role Phone Minal العراقي MD Primary Care Provider + Reason for Visit * Reason Onset Date Comments Hospital Follow-up 10/31/2024 Encounter Details Date Type Department Care Team ([facility] st Contact Info) Description 10/31/2024 Telephone [facility] MEDICINE [address] [place] [address] Minal العراقي MD [address] [place], [place] [phone] Hospital Follow-up Social History Tobacco Use Types [...] encounter Miscellaneous Notes * Telephone Encounter - Zachariah Mascorro - 10/31/2024 8:11 AM EST Tc from pt requesting a HDF appt. Hospital: [facility] [place] [place] Date of admission: 10/23/2024 Discharge date: 10/28/2024 Diagnosed: copd, pneumonia *Send message to [place] Clinical Care Coordinators documented in this encounter Plan of Treatment Not on file documented as of this encounter Visit Diagnoses Not on filedocumented in this encounter Additional Health Concerns Assessment Noted Time PHQ-9 Depression Total Score: 4 04/03/20 24 9:22 AM EDT documented as of this encounter Care Teams Roaster Supervisor Relationship Specialty Start Date End Date Minal العراقي MD [address] [place] [phone] PCP - General Family Medicine 10/06/16 [facility] 10/08/24 01/01/25 [email or web address] 12/26/24 documented as of this encounter
== END 2025-01-06 14:18 | disposition home or self-care (01) ==
LOC: HO.HHCL 14:17
PROVIDERS: Visit Provider Internal Medicine
DX: R41.82 Altered mental status, unspecified (principal)
CPT/HCPCS: 81001; 87086